=== PATIENT | female | born 1990 | race Caucasian/White ===

== ENCOUNTER 2017-05-26 20:12 | Emergency (ER) | payer BC, OTHER ==
[2017-05-26] MEDS ORDERED: LORAZEPAM 1 MG TABLET PO ONE (23:15)
[2017-05-26 23:37] LABS: ABSOLUTE BASOPHILS # (AUTO) 0.1 10^3/uL (0.0-0.2); ABSOLUTE EOSINOPHILS # (AUTO) 0.1 10^3/uL (0.0-0.6); ABSOLUTE LYMPHOCYTES (AUTO) 2.3 10^3/uL (0.5-4.7); ABSOLUTE MONOCYTES (AUTO) 0.4 10^3/uL (0.1-1.4); ABSOLUTE NEUT (AUTO) 5.5 10^3/uL (1.7-8.2); BASOPHILS % (AUTO) 0.6 % (0-2); HEMATOCRIT 36.1 % (36.0-47.0); HEMOGLOBIN 12.5 g/dL (12.0-15.5); LYMPHOCYTES % (AUTO) 27.6 % (13-45); MEAN CORPUSCULAR HEMOGLOBIN 32.1 pg (27.0-33.4); MEAN CORPUSCULAR HGB CONC 34.7 g/dL (32.0-36.0); MEAN CORPUSCULAR VOLUME 93 fl (80-97); MONOCYTES % (AUTO) 5.2 % (3-13); PLATELET COUNT 351 10^3/uL (150-450); RED CELL DISTRIBUTION WIDTH 13.6 % (11.5-14.0); SEGMENTED NEUTROPHILS % (AUTO) 65.6 % (42-78); TOTAL CELLS COUNTED % (AUTO) 100 %; WHITE BLOOD COUNT 8.4 10^3/uL (4.0-10.5)
[2017-05-26 23:51] LABS: ANION GAP 15 (5-19); BLOOD UREA NITROGEN 11 mg/dL (7-20); CALCIUM 10.6 mg/dL (8.4-10.2); CARBON DIOXIDE 23 mmol/L (22-30); CHLORIDE 102 mmol/L (98-107); GLUCOSE 97 mg/dL (75-110); POTASSIUM 4.3 mmol/L (3.6-5.0); SODIUM 140.4 mmol/L (137-145)
--- NOTE | 2017-05-27 01:27 | RADIOLOGY REPORT (SQ) ---
EXAM DESCRIPTION: CHEST SINGLE VIEW CLINICAL HISTORY: 27 years Female, chest pain, tachycardia COMPARISON: None. NUMBER OF VIEWS/TECHNIQUE: 1/AP LIMITATIONS: None. FINDINGS: Normal lung volume, clear parenchyma, normal cardiac silhouette, and intact bony thorax. IMPRESSION: No acute cardiopulmonary findings.
[2017-05-27] MEDS ORDERED: NORMAL SALINE 1000 ML 1,000 ML IV ONE (01:39)
[2017-05-27] MEDS ORDERED: METOPROLOL TARTRATE 25 MG TABLET PO ONE (01:40)
--- NOTE | 2017-05-27 01:44 | ER Document Report ---
ED General - General Chief Complaint: Chest Tightness Stated Complaint: CHEST PAIN Notes: Patient is a 27-year-old female without past medical history, no history of DVT or pulmonary embolus, no use of estrogen, who presents after developing chest heaviness around noon. She states that this started approximately 1 or 2 hours after taking Claritin with decongestant in it. She states she has taken this medication on multiple occasions in the past without similar side effect. She describes her symptoms as being a constant sense of heaviness and palpitations in her chest. Symptoms have been unchanged since onset. Nothing seems to improve or worsen the symptoms. She denies any history of similar symptoms in the past. She has not seen her primary care doctor regarding today's concerns. She denies any use of stimulants. No hemoptysis, abdominal pain, vomiting, discomfort in the arms, jaw or back. No family history of early cardiac disease. No history of connective tissue disorders. She denies any significant anxiety or stressors. TRAVEL OUTSIDE OF THE [place] IN LAST 30 DAYS: No - Related Data Allergies/Adverse Reactions: No Known Allergies Allergy (Verified 01/15/16 11:44) Past Medical History - General Information source: Patient - Social History Smoking Status: Never Smoker Chew tobacco use (# tins/day): No Frequency of alcohol use: None Drug Abuse: None Lives with: Family Family History: Reviewed & Not Pertinent Patient has suicidal ideation: No Patient has homicidal ideation: No - Past Medical History Cardiac Medical History: Denies: Hx Coronary Artery Disease, Hx Heart Attack, Hx Hypertension Pulmonary Medical History: Denies: Hx Asthma, Hx Bronchitis, Hx COPD, Hx Pneumonia Neurological Medical History: Denies: Hx Cerebrovascular Accident Renal/ Medical History: Denies: Hx Peritoneal Dialysis Musculoskeltal Medical History: Denies Hx Arthritis Past Surgical History: Denies: Hx Pacemaker - Immunizations Hx Diphtheria, Pertussis, Tetanus Vaccination: Yes Review of Systems - Review of Systems Notes: Constitutional: Negative for fever. HENT: Negative for sore throat. Eyes: Negative for visual changes. Cardiovascular: Positive for chest heaviness Respiratory: Positive for shortness of breath. Gastrointestinal: Negative for abdominal pain, vomiting or diarrhea. Genitourinary: Negative for dysuria. Musculoskeletal: Negative for back pain. Skin: Negative for rash. Neurological: Negative for headaches, weakness or numbness. 10 point ROS negative except as marked above and in HPI. Physical Exam - Vital signs Vitals: Temp Pulse Resp BP Pulse Ox 98.5 F 132 H 20 133/82 H 97 05/26/17 20:28 05/26/17 20:28 05/26/17 20:28 05/26/17 20:28 05/26/17 20:28 Interpretation: Tachycardic Notes: PHYSICAL EXAMINATION: GENERAL: Well-appearing, well-nourished and in no acute distress. HEAD: Atraumatic, normocephalic. EYES: Pupils equal round and reactive to light, extraocular movements intact, sclera anicteric, conjunctiva are normal. ENT: nares patent, oropharynx clear without exudates. Moderately dry mucous membranes. NECK: Normal range of motion, supple without lymphadenopathy LUNGS: Breath sounds clear to auscultation bilaterally and equal. No wheezes rales or rhonchi. HEART: Regular tachycardia without murmurs. Bedside echocardiogram without any evidence of a pericardial effusion. ABDOMEN: Soft, nontender, normoactive bowel sounds. No guarding, no rebound. No masses appreciated. EXTREMITIES: Normal range of motion, no pitting or edema. No cyanosis. NEUROLOGICAL: No focal neurological deficits. Moves all extremities spontaneously and on command. PSYCH: Normal mood, normal affect moderately anxious. SKIN: Warm, Dry, normal turgor, no rashes or lesions noted. Course - Re-evaluation Re-evalutation: 05/27/17 01:41 Patient presents with a sensation of palpitations, chest heaviness, and some fatigue for the past 4-5 hours. Patient states her symptoms started within 1-2 hours of taking a dose of Claritin with decongestant in it. Considerations would include an acute pulmonary embolus given her persistent tachycardia as well as sensation of chest heaviness. She has no additional risk factors for this diagnosis, does not take any form of supplemental estrogen, no history of the same, no use of chemotherapy. A d-dimer was sent as patient was unable to be excluded by PERC criteria due to her persistent tachycardia and is normal. Chest x-ray is clear without any evidence of a pneumothorax or an acute infiltrate. EKG does show sinus tachycardia but no evidence of pericarditis. No evidence of pericardial effusion on bedside echocardiogram. Will provide IV fluids as well as a small dose of beta blockade in the form of metoprolol as I do suspect that some of her symptoms may be secondary to the decongestant that she took prior to arrival. At this point of a very low clinical suspicion for any acute left any pathology including an acute pulmonary embolus, acute TX, pneumothorax, acute pneumonia, aortic dissection, or pericardial effusion. 05/27/17 03:14 Patient's heart rate has improved down to 104. Blood pressure remains within acceptable limits. I have emphasized with her that the exact etiology of her tachycardia is uncertain at this time, but I have asked that she follow-up closely with cardiology particularly if her symptoms do recur. At this time will discharge with return precautions and follow-up recommendations. Verbal discharge instructions given a the bedside and opportunity for questions given. Medication warnings reviewed. Patient is in agreement with this plan and has verbalized understanding of return precautions and the need for primary care follow-up in the next 24-72 hours. 0 - Vital Signs Vital signs: Temp Pulse Resp BP Pulse Ox 98.5 F 108 H 16 113/74 98 05/26/17 22:51 05/27/17 03:10 05/27/17 03:07 05/27/17 03:07 05/27/17 03:07 - Laboratory Result Diagrams: 05/26/17 23:25 05/26/17 23:25 Laboratory results interpreted by me: 05/26/17 23:25 Calcium 10.6 H - Diagnostic Test Radiology reviewed: Image reviewed, Reports reviewed Radiology results interpreted by me: 05/27/17 01:43 Chest x-ray: No acute infiltrate or pneumothorax - EKG Interpretation by Me Additional EKG results interpreted by me: 05/27/17 01:44 Sinus tachycardia. Rate 132. No ST elevations or depressions. QTC 397. Discharge - Discharge Clinical Impression: Tachycardia, Chest heaviness, Palpitations Condition: Good Disposition: HOME, SELF-CARE Additional Instructions: Please follow-up with cardiology regarding today's visit as your heart rate was fast. While this may be secondary to the medication you took today, following with cardiology to ensure that you have had normalization is the safest plan. Your labs and chest x-ray are normal today and do not suggest a serious cause of your symptoms at this time. Please return if you develop chest pain, shortness of breath, pass out, or have any other symptoms that are worrisome to you. Referrals: ACOSTA HOGAN MD [ACTIVE STAFF] - Follow up in 3-5 days
[2017-05-27 04:13] VITALS: BP 119/69
--- NOTE | 2017-05-27 07:33 | EKG REPORT ---
SEVERITY:- BORDERLINE ECG - SINUS TACHYCARDIA BORDERLINE T ABNORMALITIES, DIFFUSE LEADS : Confirmed by: Mihir Miranda MD 27-May-2017 07:32:04
== END 2017-05-27 04:17 | disposition home or self-care (01) ==
LOC: ER 20:12
DX: R00.0 Tachycardia, unspecified (principal); R07.9 Chest pain, unspecified; R00.2 Palpitations; R53.83 Other fatigue; Z79.899 Other long term (current) drug therapy
CPT/HCPCS: 93005; 99285; 96360; 36415; 84703; 85025; 80048; 85379; 71045; 93010; J7030

== ENCOUNTER 2017-05-27 15:57 | Emergency (ER) | payer BC ==
[2017-05-27] MEDS ORDERED: NORMAL SALINE 1000 ML 1,000 ML IV ONE (16:19)
[2017-05-27 17:17] LABS: ABSOLUTE EOSINOPHILS # (AUTO) 0.2 10^3/uL (0.0-0.6); ABSOLUTE LYMPHOCYTES (AUTO) 1.9 10^3/uL (0.5-4.7); ABSOLUTE MONOCYTES (AUTO) 0.5 10^3/uL (0.1-1.4); ABSOLUTE NEUT (AUTO) 2.7 10^3/uL (1.7-8.2); BASOPHILS % (AUTO) 0.8 % (0-2); EOSINOPHILS % (AUTO) 3.3 % (0-6); HEMATOCRIT 35.9 % (36.0-47.0); HEMOGLOBIN 12.2 g/dL (12.0-15.5); LYMPHOCYTES % (AUTO) 36.2 % (13-45); MEAN CORPUSCULAR HEMOGLOBIN 31.7 pg (27.0-33.4); MEAN CORPUSCULAR HGB CONC 34.1 g/dL (32.0-36.0); MEAN CORPUSCULAR VOLUME 93 fl (80-97); MONOCYTES % (AUTO) 8.9 % (3-13); PLATELET COUNT 336 10^3/uL (150-450); RED BLOOD COUNT 3.86 10^6/uL (3.72-5.28); RED CELL DISTRIBUTION WIDTH 13.6 % (11.5-14.0); SEGMENTED NEUTROPHILS % (AUTO) 50.8 % (42-78); TOTAL CELLS COUNTED % (AUTO) 100 %; WHITE BLOOD COUNT 5.3 10^3/uL (4.0-10.5)
[2017-05-27 17:22] LABS: APPEARANCE,URINE CLEAR; BILIRUBIN,URINE NEGATIVE (NEGATIVE); COLOR,URINE STRAW; GLUCOSE, URINE NEGATIVE (NEGATIVE); KETONES,URINE NEGATIVE (NEGATIVE); LEUKOCYTE ESTERASE,URINE NEGATIVE (NEGATIVE); NITRITE,URINE NEGATIVE (NEGATIVE); PROTEIN,URINE NEGATIVE (NEGATIVE); URINE SPECIFIC GRAVITY 1.002; UROBILINOGEN,URINE NEGATIVE mg/dL (<2.0)
[2017-05-27] MEDS ORDERED: METOPROLOL TARTRATE 25 MG TABLET PO ONE (17:27)
[2017-05-27 17:38] LABS: URINE AMPHETAMINES SCREEN NEGATIVE; URINE BARBITURATES SCREEN NEGATIVE; URINE BENZODIAZEPINES SCREEN NEGATIVE; URINE COCAINE SCREEN NEGATIVE; URINE MARIJUANA (THC) SCREEN NEGATIVE; URINE METHADONE SCREEN NEGATIVE; URINE PHENCYCLIDINE SCREEN NEGATIVE
[2017-05-27 17:43] LABS: ALANINE AMINOTRANSFERASE 43 U/L (9-52); ALBUMIN 4.6 g/dL (3.5-5.0); ALKALINE PHOSPHATASE 74 U/L (38-126); ANION GAP 12 (5-19); ASPARTATE AMINO TRANSFERASE 31 U/L (14-36); BILIRUBIN,DIRECT 0.3 mg/dL (0.0-0.4); BILIRUBIN,TOTAL 0.3 mg/dL (0.2-1.3); BLOOD UREA NITROGEN 9 mg/dL (7-20); CALCIUM 9.6 mg/dL (8.4-10.2); CARBON DIOXIDE 24 mmol/L (22-30); CHLORIDE 106 mmol/L (98-107); CREATINE KINASE 108 U/L (30-135); GLUCOSE 100 mg/dL (75-110); POTASSIUM 4.3 mmol/L (3.6-5.0); SODIUM 141.5 mmol/L (137-145); TOTAL PROTEIN 8.6 g/dL (6.3-8.2)
[2017-05-27 18:00] LABS: CREATINE KINASE MB < 0.22 ng/mL (<4.55); TROPONIN I < 0.012 ng/mL
[2017-05-27 18:01] LABS: FREE T4 (FREE THYROXINE) 0.91 ng/dL (0.78-2.19)
[2017-05-27 18:14] LABS: THYROID STIMULATING HORMONE 3.73 uIU/mL (0.47-4.68)
--- NOTE | 2017-05-27 20:02 | EKG REPORT ---
SEVERITY:- BORDERLINE ECG - SINUS TACHYCARDIA BORDERLINE T ABNORMALITIES, ANTERIOR LEADS : Confirmed by: Mihir Miranda MD 27-May-2017 20:01:47
[2017-05-27] MEDS ORDERED: ONDANSETRON HCL INJ/PF 4 MG/2 ML SDV IV ONE (20:13)
--- NOTE | 2017-05-27 20:14 | RADIOLOGY REPORT (SQ) ---
EXAM DESCRIPTION: CTA CHEST COMPLETED DATE/TIME: 05/27/2017 7:55 pm REASON FOR STUDY: r/o pe tachy cp COMPARISON: Chest x-ray 05/27/2017 TECHNIQUE: CT scan of the chest performed using helical scanning technique with dynamic intravenous contrast injection. Images reviewed with lung, soft tissue and bone windows. Reconstructed coronal and sagittal MPR images reviewed. Additional 3 dimensional post-processing performed to develop Maximal Intensity Projection images (MS P). All images stored on PACS. All CT scanners at this facility use dose modulation, iterative reconstruction, and/or weight based d osing when appropriate to reduce radiation dose to as low as reasonably achievable (ALARA). [facility]: Dose Right [facility]: CareDose [facility]: Dose Right [facility]: Teradose 4D [facility]: [employer] CONTRAST TYPE AND DOSE: contrast/concentration: Isovue 370.00 mg/ml; Total Contrast Delivered: 100.0 ml; Total Saline Delivered: 70.0 ml Contrast bolus optimized for the pulmonary arteries. Not diagnostic for the aorta. RENAL FUNCTION: BUN 9 creatinine 0.8 RADIATION DOSE: CT Rad equipment meets quality standard of care and radiation dose reduction techniq ues were employed. CTDIvol: 6.6 - 27.5 mGy. DLP: 921 mGy-cm. . LIMITATIONS: None. FINDINGS: LUNGS AND PLEURA: No masses, infiltrates, pneumothorax. No pleural effusions, calcificati ons. AORTA AND GREAT VESSELS: No aneurysm. No dissection. HEART: No pericardial effusion. No significant coronary artery calcifications. PULMONARY ARTERIES: No emboli visualized in the main pulmonary arteries or the segmental branches. HILAR AND MEDIASTINAL STRUCTURES: No identified masses or abnormal nodes. HARDWARE: None in the chest. UPPER ABDOMEN: No significant findings. Limited exam. THYROID AND OTHER SOFT TISSUES: No masses. No adenopathy. BONES: No acute or significant finding. 3D MIPS: Confirm above findings. OTHER: No other significant finding. IMPRESSION: NORMAL CTA OF THE CHEST. NO PULMONARY EMBOLI. COMMENT: Quality ID # [id number]: Final reports with documentation of one or more dose reduction techniques (e.g., Automated exposure control, adjustment of the mA and/or kV according to patient size, use of iterative reconstruction technique) TECHNICAL DOCUMENTATION: JOB ID: [id number] [employer]- All Rights Reserved Reading location - IP/workstation name: [email or web address]
[2017-05-27 20:29] VITALS: BP 118/74
--- NOTE | 2017-05-27 21:03 | ER Document Report ---
ED General - General Chief Complaint: Chest Tightness Stated Complaint: CHEST TIGHTNESS, HEART RATE ISSUE Time Seen by Provider: 05/27/17 16:18 TRAVEL OUTSIDE OF THE [place] IN LAST 30 DAYS: No - HPI Patient complains to provider of: Chest tightness palpitations Notes: Patient coming in for chest tightness and palpitations. Patient was seen night prior for similar symptoms started after patient was taken a antihistamine with decongestant. Patient had workup performed EKG showing a tachycardia and basic lab work showing no clear pathology. Patient was discharged however upon reevaluation by the provider today patient still having symptoms therefore was referred to become back to the ER for further evaluation. Patient states that she has not taken any further medication with decongestants no other further stimulants uses. Patient states still having tachycardia and slight chest heaviness. Patient states she did improve when she was given medication night prior. Review of the chart showed patient received lorazepam and beta-shashi. Patient denies any fevers chills nausea vomiting diarrhea. Denies any trauma. Denies any recent travel denies any hormone use. Patient is tachycardic upon my evaluation however resting comfortably no signs of hypoxia - Related Data Allergies/Adverse Reactions: No Known Allergies Allergy (Verified 05/27/17 16:00) Past Medical History - Social History Smoking Status: Never Smoker Chew tobacco use (# tins/day): No Frequency of alcohol use: None Family History: Reviewed & Not Pertinent Patient has suicidal ideation: No Patient has homicidal ideation: No - Past Medical History Cardiac Medical History: Denies: Hx Coronary Artery Disease, Hx Heart Attack, Hx Hypertension Pulmonary Medical History: Denies: Hx Asthma, Hx Bronchitis, Hx COPD, Hx Pneumonia Neurological Medical History: Denies: Hx Cerebrovascular Accident Renal/ Medical History: Denies: Hx Peritoneal Dialysis Musculoskeltal Medical History: Denies Hx Arthritis Past Surgical History: Reports: Hx Cholecystectomy, Hx Tubal Ligation. Denies: Hx Pacemaker - Immunizations Hx Diphtheria, Pertussis, Tetanus Vaccination: Yes Review of Systems - Review of Systems Constitutional: No symptoms reported EENT: No symptoms reported Cardiovascular: Palpitations Respiratory: No symptoms reported Gastrointestinal: No symptoms reported Genitourinary: No symptoms reported Female Genitourinary: No symptoms reported Musculoskeletal: No symptoms reported Skin: No symptoms reported Hematologic/Lymphatic: No symptoms reported Neurological/Psychological: No symptoms reported -: Yes All other systems reviewed and negative Physical Exam - Vital signs Vitals: Pulse Ox 100 05/27/17 16:18 Interpretation: Normal - General General appearance: Appears well, Alert - HEENT Head: Normocephalic, Atraumatic Eyes: Normal Pupils: PERRL - Respiratory Respiratory status: No respiratory distress Chest status: Nontender Breath sounds: Normal Chest palpation: Normal - Cardiovascular Rhythm: Regular, Tachycardia Heart sounds: Normal auscultation Murmur: No - Abdominal Inspection: Normal Distension: No distension Bowel sounds: Normal Tenderness: Nontender Organomegaly: No organomegaly - Back Back: Normal, Nontender - Extremities General upper extremity: Normal inspection, Nontender, Normal color, Normal ROM , Normal temperature General lower extremity: Normal inspection, Nontender, Normal color, Normal ROM , Normal temperature, Normal weight bearing. No: Patrice's sign - Neurological Neuro grossly intact: Yes Cognition: Normal Orientation: AAOx4 Hannah Coma Scale Eye Opening: Spontaneous Hannah Coma Scale Verbal: Oriented Uriah Coma Scale Motor: Obeys Commands Uriah Coma Scale Total: 15 Speech: Normal Motor strength normal: LUE, RUE, LLE, RLE Sensory: Normal - Psychological Associated symptoms: Normal affect, Normal mood - Skin Skin Temperature: Warm Skin Moisture: Dry Skin Color: Normal Course - Re-evaluation Re-evalutation: 05/27/17 21:57 The patient has atypical chest pain as the patient's chest pain is not suggestive of pulmonary embolus, cardiac ischemia, aortic dissection, or other serious etiology. Given the extremely low risk of these diagnoses further testing and evaluation for these possibilities does not appear to be indicated at this time. The patient has been instructed to return if the symptoms worsen or change in any way. Thyroid studies tox screen electrolytes were all performed showing no critical pathology. Patient did have a negative d-dimer day prior to arrival my thought was a low risk however this is patient's second visit to feel like further investigation with a CTA was warranted CTA did return negative. Patient improved after small dose of beta-shashi. tachycardia for unknown reason however does respond to a beta-shashi. Will discharge patient home with a small dose of metoprolol daily and highly encouraged patient to continue to follow-up with the cigar head puncher recommended at her last visit. - Vital Signs Vital signs: Temp Pulse Resp BP Pulse Ox 98.1 F 128 H 19 118/74 100 05/27/17 21:17 05/27/17 16:19 05/27/17 21:00 05/27/17 20:12 05/27/17 21:00 - Laboratory Result Diagrams: 05/27/17 17:06 05/27/17 17:06 Laboratory results interpreted by me: 05/27/17 05/27/17 17:06 17:06 Hct 35.9 L Total Protein 8.6 H Discharge - Discharge Clinical Impression: Tachycardia, Chest heaviness Condition: Good Disposition: HOME, SELF-CARE Instructions: Chest Pain of Unclear Cause ([facility]), Family Physicians / Practices , Sinus Tachycardia ([facility]) Additional Instructions: At this time the laboratory studies and CAT scan did not show any significant pathology and did not give me a reason for your tachycardia. I recommended we start you on a very low-dose beta-shashi as well as seems to help out with her symptoms and highly recommend she does continue to follow-up with a cigar head puncher as previously recommended. Prescriptions: Metoprolol Tartrate 12.5 mg PO BID #14 tablet Forms: Return to Work Referrals: AARON VEE [Primary Care Provider] - Follow up in 3-5 days ACOSTA HOGAN MD [ACTIVE STAFF] - Follow up as needed
== END 2017-05-27 21:25 | disposition home or self-care (01) ==
LOC: ER 15:57
DX: R00.0 Tachycardia, unspecified (principal); R07.9 Chest pain, unspecified; R00.2 Palpitations; Z90.49 Acquired absence of other specified parts of digestive tract; Z98.51 Tubal ligation status
CPT/HCPCS: 93005; 99285; 96374; 36415; 84439; 82553; 82550; 84443; 85025; 81025; 80053; 81001; 84484; 80307; 83880; 71275; 93010; J2405; J7030

== ENCOUNTER 2017-08-12 12:42 | Emergency (ER) | payer BC ==
[2017-08-12] MEDS ORDERED: ONDANSETRON HCL INJ/PF 4 MG/2 ML SDV IV ONE (13:19)
[2017-08-12] MEDS ORDERED: KETOROLAC TROMETHAMINE INJ/PF 30 MG/1 ML SDV IV ONE (13:19)
--- NOTE | 2017-08-12 13:23 | ER Document Report ---
ED Medical Screen (RME) - General Chief Complaint: Flank Pain Stated Complaint: BACK PAIN Time Seen by Provider: 08/12/17 13:16 Notes: 27 years old female presents today with right flank pain since this morning radiating towards her groin. Associated with slight nausea no vomiting. Pain comes and goes. When he reaches the top of the pain scale is about 10 then subsided to around 6-8. No dysuria frequency urgency no hematuria. Denies any fever chills or other constitutional symptoms. I have greeted and performed a rapid initial assessment of this patient. A comprehensive ED assessment and evaluation of the patient, analysis of test results and completion of the medical decision making process will be conducted by additional ED providers. PHYSICAL EXAMINATION: GENERAL: Well-appearing, well-nourished and in moderate acute distress. HEAD: Atraumatic, normocephalic. EYES: Pupils equal round extraocular movements intact, conjunctiva are normal. ENT: Nares patent NECK: Normal range of motion LUNGS: No respiratory distress Musculoskeletal: Normal range of motion NEUROLOGICAL: Normal speech, normal gait. PSYCH: Normal mood, normal affect. SKIN: Warm, Dry, normal turgor, no rashes or lesions noted. TRAVEL OUTSIDE OF THE [place] IN LAST 30 DAYS: No - Related Data Allergies/Adverse Reactions: No Known Allergies Allergy (Verified 05/27/17 16:00) Past Medical History - Social History Chew tobacco use (# tins/day): No Frequency of alcohol use: None Drug Abuse: None - Past Medical History Cardiac Medical History: Denies: Hx Coronary Artery Disease, Hx Heart Attack, Hx Hypertension Pulmonary Medical History: Denies: Hx Asthma, Hx Bronchitis, Hx COPD, Hx Pneumonia Neurological Medical History: Denies: Hx Cerebrovascular Accident Renal/ Medical History: Denies: Hx Peritoneal Dialysis Musculoskeltal Medical History: Denies Hx Arthritis Past Surgical History: Reports: Hx Cholecystectomy, Hx Tubal Ligation. Denies: Hx Pacemaker - Immunizations Hx Diphtheria, Pertussis, Tetanus Vaccination: Yes Physical Exam - Vital signs Vitals: Temp Pulse Resp BP Pulse Ox 97.9 F 102 H 20 130/74 H 98 08/12/17 12:46 08/12/17 12:46 08/12/17 12:46 08/12/17 12:46 08/12/17 12:46 Course - Vital Signs Vital signs: Temp Pulse Resp BP Pulse Ox 97.9 F 102 H 20 130/74 H 98 08/12/17 12:46 08/12/17 12:46 08/12/17 12:46 08/12/17 12:46 08/12/17 12:46
--- NOTE | 2017-08-12 14:04 | ER Document Report ---
ED General - General Mode of Arrival: Ambulatory Information source: Patient TRAVEL OUTSIDE OF THE [place] IN LAST 30 DAYS: No <SHIMA NORTON - Last Filed: 08/12/17 14:12> <ROSSI CASTANO - Last Filed: 08/12/17 16:26> - General Chief Complaint: Flank Pain Stated Complaint: BACK PAIN Time Seen by Provider: 08/12/17 13:16 Notes: 27 y.o female presents to the ED with RT flank pain of onset this morning around 0800. Pt reports that the pain this morning woke her up from sleep. Pt denies any radiation to her groin or abdomen. She states that her pain is intermittent but denies any rest, activity or position that alleviates the pain. Pt denies any injury to her RT flank or N/V/D. She denies any fever, dysuria, frequency or hematuria. Pt has a PSHx of tubal ligation in 2014 and cholecystectomy. Pt's last menstrual period was two weeks ago and is still happening which she states is normal for her. (SHIMA NORTON) - Related Data Allergies/Adverse Reactions: No Known Allergies Allergy (Verified 05/27/17 16:00) Past Medical History - General Information source: Patient - Social History Smoking Status: Never Smoker Chew tobacco use (# tins/day): No Frequency of alcohol use: None Drug Abuse: None Family History: Reviewed & Not Pertinent Patient has suicidal ideation: No Patient has homicidal ideation: No Neurological Medical History: Renal/ Medical History: Denies: Hx Peritoneal Dialysis Past Surgical History: Reports: Hx Cholecystectomy, Hx Tubal Ligation - Immunizations Hx Diphtheria, Pertussis, Tetanus Vaccination: Yes <SHIMA NORTON - Last Filed: 08/12/17 14:12> Review of Systems - Review of Systems Constitutional: No symptoms reported EENT: No symptoms reported Cardiovascular: No symptoms reported Respiratory: No symptoms reported Gastrointestinal: See HPI. denies: Abdominal pain, Diarrhea, Nausea, Vomiting Genitourinary: See HPI, Flank pain. denies: Dysuria, Frequency, Hematuria Female Genitourinary: No symptoms reported Musculoskeletal: No symptoms reported Skin: No symptoms reported Hematologic/Lymphatic: No symptoms reported Neurological/Psychological: No symptoms reported -: Yes All other systems reviewed and negative <SHIMA NORTON - Last Filed: 08/12/17 14:12> Physical Exam <SHIMA NORTON - Last Filed: 08/12/17 14:12> <ROSSI CASTANO - Last Filed: 08/12/17 16:26> - Vital signs Vitals: Temp Pulse Resp BP Pulse Ox 97.9 F 102 H 20 130/74 H 98 08/12/17 12:46 08/12/17 12:46 08/12/17 12:46 08/12/17 12:46 08/12/17 12:46 - Notes Notes: Physical Exam: General: Alert, appears well. HEENT: Normocephalic. Atraumatic. PERRL. Extraocular movements intact. Oropharynx clear. Neck: Supple. Non-tender. Respiratory: No respiratory distress. Clear and equal breath sounds bilaterally. Cardiovascular: Regular rate and rhythm. Back: Tender to palpate RT perivertebral muscles and extends laterally over the ribs. Not tender to palpate over the LT side. Abdominal: Obese. Soft, non-tender. No distension. Normal Bowel Sounds. Extremities: Moves all four extremities. Upper extremities: Normal inspection. Normal ROM. Lower extremities: Normal inspection. No edema. Normal ROM. Neurological: Normal cognition. AAOx3. Normal speech. (SHMIA NORTON) Course <SHIMA NORTON - Last Filed: 08/12/17 14:12> - Laboratory Result Diagrams: 08/12/17 14:15 08/12/17 14:15 - Diagnostic Test Radiology reviewed: Image reviewed, Reports reviewed - Noncontrasted CT scan for renal stones shows hepatomegaly with diffuse fatty infiltration of the liver. No kidney stones, no explanation for her pain. <ROSSI CASTANO - Last Filed: 08/12/17 16:26> - Re-evaluation Re-evalutation: 08/12/17 16:19 CT scan does not show explanation for patient's pain. The urinalysis does not show hematuria. Physical exam is most consistent with musculoskeletal right flank and lumbar back pain. (ROSSI CASTANO) - Vital Signs Vital signs: Temp Pulse Resp BP Pulse Ox 97.9 F 102 H 20 130/74 H 98 08/12/17 12:46 08/12/17 12:46 08/12/17 12:46 08/12/17 12:46 08/12/17 12:46 - Laboratory Laboratory results interpreted by me: 08/12/17 13:56 Urine Blood SMALL H Discharge <SHIMA NORTON - Last Filed: 08/12/17 14:12> <EYADROSSI Bush - Last Filed: 08/12/17 16:26> - Discharge Clinical Impression: Flank pain Condition: Stable Disposition: HOME, SELF-CARE Additional Instructions: Flank Pain: We weren't able to prove an exact cause for your flank pain. Pain in the flank can be caused by a muscle strain or spasm. Sometimes a kidney stone causes pain, but can't be found on our tests. Infection in the kidney should be evident on a urine test. Early shingles can occasionally cause flank pain, without the rash that proves the diagnosis. On rare occasions, disease of the pancreas, aorta, spleen, or colon can create pain in the flank. At this time, there's no evidence of a dangerous condition, and it seems safe for you to be at home. If the pain goes away and does not come back, no further testing will be needed. If pain persists, or becomes more severe, we may need to repeat some tests or order additional new testing. If your pain is early shingles, you should develop an eruption of blisters in the painful area within a few days. Call the doctor or return if you have pain that is spreading or becoming more severe, pain that does not resolve with time, fever, or any other new symptoms. Your exam and testing suggests that the pain is coming from the muscles in your right flank, lateral chest wall, and lumbar back region. This is usually due to a strain that occurs several days before the pain suddenly starts. The CT scan did show an enlarged liver with diffuse fatty infiltration of the liver. You should follow-up with your primary care provider for referral to a dump truck operator to further evaluate this problem. Take Tylenol and ibuprofen or Aleve for the back and side muscle pain. You will be discharged with some pain medication to take this evening and tomorrow. Rest as much as possible and avoid turning, twisting, and heavy lifting. Follow-up with your primary care provider this week if not improving. RETURN TO THE EMERGENCY ROOM IF ANY NEW OR WORSENING SYMPTOMS. Scribe Attestation: 08/12/17 14:41 I personally performed the services described in the documentation, reviewed and edited the documentation which was dictated to the scribe in my presence, and it accurately records my words and actions. (ROSSI CASTANO) Scribe Documentation - Scribe Written by Ye:: Ye Ardon [id number] 08/12/17 acting as scribe for :: Eyad <SHIMA NORTON - Last Filed: 08/12/17 14:12>
[2017-08-12 14:39] LABS: ABSOLUTE EOSINOPHILS # (AUTO) 0.1 10^3/uL (0.0-0.6); ABSOLUTE LYMPHOCYTES (AUTO) 1.9 10^3/uL (0.5-4.7); ABSOLUTE MONOCYTES (AUTO) 0.5 10^3/uL (0.1-1.4); ABSOLUTE NEUT (AUTO) 3.2 10^3/uL (1.7-8.2); BASOPHILS % (AUTO) 0.9 % (0-2); EOSINOPHILS % (AUTO) 1.2 % (0-6); HEMATOCRIT 36.7 % (36.0-47.0); HEMOGLOBIN 12.5 g/dL (12.0-15.5); LYMPHOCYTES % (AUTO) 33.6 % (13-45); MEAN CORPUSCULAR HEMOGLOBIN 32.2 pg (27.0-33.4); MEAN CORPUSCULAR VOLUME 95 fl (80-97); MONOCYTES % (AUTO) 8.1 % (3-13); PLATELET COUNT 304 10^3/uL (150-450); RED BLOOD COUNT 3.87 10^6/uL (3.72-5.28); RED CELL DISTRIBUTION WIDTH 13.3 % (11.5-14.0); SEGMENTED NEUTROPHILS % (AUTO) 56.2 % (42-78); TOTAL CELLS COUNTED % (AUTO) 100 %; WHITE BLOOD COUNT 5.7 10^3/uL (4.0-10.5)
[2017-08-12 15:00] LABS: ALANINE AMINOTRANSFERASE 36 U/L (9-52); ALBUMIN 4.4 g/dL (3.5-5.0); ALKALINE PHOSPHATASE 67 U/L (38-126); ANION GAP 13 (5-19); ASPARTATE AMINO TRANSFERASE 30 U/L (14-36); BILIRUBIN,DIRECT 0.3 mg/dL (0.0-0.4); BILIRUBIN,TOTAL 0.3 mg/dL (0.2-1.3); BLOOD UREA NITROGEN 8 mg/dL (7-20); CALCIUM 10.1 mg/dL (8.4-10.2); CARBON DIOXIDE 24 mmol/L (22-30); CHLORIDE 106 mmol/L (98-107); GLUCOSE 107 mg/dL (75-110); LIPASE 155.8 U/L (23-300); POTASSIUM 4.4 mmol/L (3.6-5.0); TOTAL PROTEIN 7.8 g/dL (6.3-8.2)
--- NOTE | 2017-08-12 16:00 | RADIOLOGY REPORT (SQ) ---
EXAM DESCRIPTION: CT ABD/PELVIS NO ORAL OR IV COMPLETED DATE/TIME: 08/12/2017 3:40 pm REASON FOR STUDY: Rule out kidney stone COMPARISON: 07/05/2011. TECHNIQUE: CT scan of the abdomen and pelvis performed without intravenous or oral contrast. Images reviewed with lung, soft tissue, and bone windows. Reconstructed coronal and sagittal MPR images revi ewed. All images stored on PACS. All CT scanners at this facility use dose modulation, iterative reconstruction, and/or weight based d osing when appropriate to reduce radiation dose to as low as reasonably achievable (ALARA). [facility]: Dose Right [facility]: CareDose [facility]: Dose Right [facility]: Teradose 4D [facility]: [employer] RADIATION DOSE: CT Rad equipment meets quality standard of care and radiation dose reduction techniq ues were employed. CTDIvol: 18.8 mGy. DLP: 1037 mGy-cm.mGy. LIMITATIONS: None. FINDINGS: LOWER CHEST: No significant findings. No nodules or infiltrates. NON-CONTRASTED LIVER, SPLEEN, ADRENALS: Evaluation limited by lack of IV contrast. Liver enlarged, m easuring 23 cm. Diffuse fatty infiltration of the liver, somewhat heterogenous. No identified signi ficant masses. PANCREAS: No masses. No peripancreatic inflammatory changes. GALLBLADDER: No identified stones by CT criteria. No inflammatory changes to suggest cholecystitis. RIGHT KIDNEY AND URETER: No suspicious masses. Assessment limited by lack of IV contrast. No signif icant calcifications. No hydronephrosis or hydroureter. LEFT KIDNEY AND URETER: No suspicious masses. Assessment limited by lack of IV contrast. No signifi cant calcifications. No hydronephrosis or hydroureter. AORTA AND RETROPERITONEUM: No aneurysm. No retroperitoneal masses or adenopathy. BOWEL AND PERITONEAL CAVITY: No obvious masses or inflammatory changes. No free fluid. APPENDIX: Normal. PELVIS, BLADDER, AND ABDOMINAL WALL:No abnormal masses. No free fluid. Bladder normal. BONES: No significant findings. OTHER: No other significant finding. IMPRESSION: HEPATOMEGALY WITH DIFFUSE FATTY INFILTRATION OF THE LIVER. NO OTHER SIGNIFICANT OR ACUT E PROCESS IN THE ABDOMEN OR PELVIS. COMMENT: Quality ID # [id number]: Final reports with documentation of one or more dose reduction techniques (e.g., Automated exposure control, adjustment of the mA and/or kV according to patient size, use of iterative reconstruction technique) TECHNICAL DOCUMENTATION: JOB ID: [id number] [employer]- All Rights Reserved Reading location - IP/workstation name: [email or web address]
[2017-08-12 16:06] LABS: APPEARANCE,URINE CLEAR; BILIRUBIN,URINE NEGATIVE (NEGATIVE); COLOR,URINE STRAW; GLUCOSE, URINE NEGATIVE (NEGATIVE); KETONES,URINE NEGATIVE (NEGATIVE); LEUKOCYTE ESTERASE,URINE NEGATIVE (NEGATIVE); NITRITE,URINE NEGATIVE (NEGATIVE); PROTEIN,URINE NEGATIVE (NEGATIVE); URINE SPECIFIC GRAVITY 1.008; UROBILINOGEN,URINE NEGATIVE mg/dL (<2.0)
[2017-08-12] MEDS ORDERED: HYDROCODONE/ACETAMINOPHEN 5-325 MG (6 TAB/ER DISP) PO PRN (16:26)
[2017-08-12 16:59] VITALS: BP 124/82
== END 2017-08-12 17:07 | disposition home or self-care (01) ==
LOC: ER 12:42
DX: R10.9 Unspecified abdominal pain (principal); R16.0 Hepatomegaly, not elsewhere classified; K76.0 Fatty (change of) liver, not elsewhere classified; M54.5 Low back pain; Z90.49 Acquired absence of other specified parts of digestive tract; Z98.51 Tubal ligation status
CPT/HCPCS: 99284; 96374; 96375; 36415; 83690; 85025; 81025; 80053; 81001; 74176; J1885; J2405

== ENCOUNTER 2017-09-01 08:16 | Emergency (ER) | payer BC ==
--- NOTE | 2017-09-01 09:05 | ER Document Report ---
ED General - General Mode of Arrival: Ambulatory Information source: Patient TRAVEL OUTSIDE OF THE [place] IN LAST 30 DAYS: No <ASHLI FISHMAN - Last Filed: 09/01/17 12:06> <ROSSI CASTANO - Last Filed: 09/01/17 13:16> - General Chief Complaint: Pelvic Pain Stated Complaint: LEFT SIDE PAIN Time Seen by Provider: 09/01/17 08:44 Notes: Patient is a 27 year old female with a history of ovarian cysts presents to the emergency department complaining of left lower abdominal pain onset this morning. Patient states her abdominal pain woke her out of her sleep this morning. She further states her current pain feels similar to her previous ovarian cysts. Patient mentions having menstural cramps onset last week and states her current pain does not feel like menstrual cramps. Patient is currently on her period further stating she has irregular periods. She states she had her period for 2 months, stopped for 1 week and is currently back on. She states she does not have an OBGYN and has not seen anyone regarding her irregularity. Patient is currently taking Metoprolol. (ASHLI FISHMAN) The patient was seen here on 08/12/2017 complaining of right flank pain. At that time she had a CT limited study which did not show any renal stones or ureteral stones. Her diagnosis was most likely musculoskeletal pain due to the lack of any findings other than the physical exam showing the tenderness in the muscles. The CT scan did note hepatomegaly with diffuse fatty infiltration of the liver. (ROSSI CASTANO) - Related Data Allergies/Adverse Reactions: No Known Allergies Allergy (Verified 05/27/17 16:00) Past Medical History - General Information source: Patient - Social History Smoking Status: Never Smoker Chew tobacco use (# tins/day): No Frequency of alcohol use: None Drug Abuse: None Family History: Reviewed & Not Pertinent Patient has suicidal ideation: No Patient has homicidal ideation: No Neurological Medical History: Past Surgical History: Reports: Hx Cholecystectomy, Hx Tubal Ligation - Immunizations Hx Diphtheria, Pertussis, Tetanus Vaccination: Yes <ASHLI FISHMAN - Last Filed: 09/01/17 12:06> Review of Systems - Review of Systems Constitutional: No symptoms reported EENT: No symptoms reported Cardiovascular: No symptoms reported Respiratory: No symptoms reported Gastrointestinal: See HPI, Abdominal pain Genitourinary: No symptoms reported Female Genitourinary: No symptoms reported Musculoskeletal: No symptoms reported Skin: No symptoms reported Hematologic/Lymphatic: No symptoms reported Neurological/Psychological: No symptoms reported -: Yes All other systems reviewed and negative <ASHLI FISHMAN - Last Filed: 09/01/17 12:06> Physical Exam - General General appearance: Appears well, Alert In distress: None - HEENT Head: Normocephalic, Atraumatic Eyes: Normal Conjunctiva: Normal Extraocular movements intact: Yes Pupils: PERRL Mucous membranes: Normal Neck: Normal - Respiratory Respiratory status: No respiratory distress Chest status: Nontender Breath sounds: Normal Chest palpation: Normal - Cardiovascular Rhythm: Regular Heart sounds: Normal auscultation Murmur: No Friction rub: No Gallop: None auscultated - Abdominal Inspection: Obese Distension: No distension Bowel sounds: Normal Tenderness: Tender - Left pelvic region tender to palpation. Palpation in the RLQ does not cause pain in the LLQ or pelvic region., Guarding - Minimal, Left pelvic region - Extremities General upper extremity: Normal ROM General lower extremity: Normal ROM - Neurological Neuro grossly intact: Yes Cognition: Normal Orientation: AAOx4 Hannah Coma Scale Eye Opening: Spontaneous [place] Coma Scale Verbal: Oriented [place] Coma Scale Motor: Obeys Commands [place] Coma Scale Total: 15 Speech: Normal - Psychological Associated symptoms: Normal affect, Normal mood - Skin Skin Temperature: Warm Skin Moisture: Dry Skin Color: Normal <ASHLI FISHMAN - Last Filed: 09/01/17 12:06> - Vital signs Vitals: Temp Pulse Resp BP Pulse Ox 97.7 F 99 18 141/89 H 100 09/01/17 08:19 09/01/17 08:19 09/01/17 08:19 09/01/17 08:19 09/01/17 08:19 Course - Laboratory Result Diagrams: 09/01/17 09:25 09/01/17 09:25 <ASHLI FISHMAN - Last Filed: 09/01/17 12:06> - Laboratory Result Diagrams: 09/01/17 09:25 09/01/17 09:25 - Diagnostic Test Radiology reviewed: Reports reviewed - Transvaginal ultrasound is normal. CT scan abdomen pelvis does not show acute abnormality. <ROSSI CASTANO - Last Filed: 09/01/17 13:16> - Re-evaluation Re-evalutation: 09/01/17 12:25 The patient was quite insistent about something new being wrong in her abdomen. CT scan was ordered, and before I discovered that she had had one 3 weeks ago , she was already in the scanner being imaged so I could not stop the scan from being done. (ROSSI CASTANO) - Vital Signs Vital signs: Temp Pulse Resp BP Pulse Ox 97.7 F 99 18 141/89 H 100 09/01/17 08:19 09/01/17 08:19 09/01/17 08:37 09/01/17 08:19 09/01/17 08:19 - Laboratory Laboratory results interpreted by me: 09/01/17 09/01/17 09/01/17 09:25 09:25 10:30 Hct 35.5 L Sodium 145.7 H Chloride 108 H Urine Blood LARGE H Ur Leukocyte Esterase SMALL H Discharge <ASHLI FISHMAN - Last Filed: 09/01/17 12:06> <ROSSI CASTANO - Last Filed: 09/01/17 13:16> - Discharge Clinical Impression: Menstrual cramps, Pelvic pain Urinary tract infection Qualifiers: Urinary tract infection type: site unspecified Hematuria presence: with hematuria Qualified Code(s): N39.0 - Urinary tract infection, site not specified Condition: Stable Disposition: HOME, SELF-CARE Additional Instructions: Urinary Tract Infection: Your evaluation indicates that you have a urinary tract infection. This is due to germs growing in the bladder. This is a common problem. This infection usually responds quickly to antibiotics. Your antibiotic should be taken exactly as prescribed. Drink plenty of fluids -- three to four quarts a day. Occasionally, a bladder anesthetic will be prescribed to help stop the feeling of urgency until the antibiotic has a chance to clear the infection. This may cause your urine to be dark orange. Certain urine infections require a culture. If the doctor obtained a culture, the results will be back in two days. You should call to see if a change in treatment is needed. A repeat urinalysis after you finish treatment is often recommended. The physician will let you know if further testing is required. Call the doctor if you develop fever, chills, flank pain, inability to urinate, or blood in the urine. Pelvic Pain: There are many causes of pain in the pelvic area. The cause could be the tubes, ovaries, uterus, intestines, appendix, pelvic muscles and connective tissue, or the urinary tract. The cause of your pelvic pain is not clear. However, it seems safe to treat you outside the hospital. If the pain sounds like a temporary problem, we sometimes wait to see if it goes away. Other patients may need additional tests, such as pelvic ultrasound or cultures. Conditions may change. Call us or come back for reexamination if any problems occur, such as: (1) Pain that becomes more severe, steady, or becomes concentrated in one specific area. Also, pain that is more severe with movement or coughing. (2) Vomiting that persists or becomes more frequent. (3) Blood in the vomitus, urine, or bowel movements. Blood in the stool may have a tarry or black appearance. (4) Shaking chills or fever greater than 100 degrees. (5) The abdomen becomes more distended or swollen. (6) Bowel movements cease. (7) Heavy vaginal bleeding. The pelvic ultrasound did not show any abnormalities of your uterus or ovaries. The urinalysis suggests that you have a urinary tract infection. The blood work does not suggest a significant infectious process occurring at this time. The increased pain in your pelvis today may be due to the menstrual cramps being worse than usual, and may be due to the addition of a urinary tract infection. You should take medications as prescribed, drink plenty of fluids, get plenty of rest. Continue taking a nonsteroidal anti-inflammatory medication such as ibuprofen or Aleve. Follow-up with your primary care provider tomorrow or [facility] if not improving. Prescriptions: Cephalexin Monohydrate [Keflex 500 mg Capsule] 500 mg PO TID #15 capsule Oxycodone HCl/Acetaminophen [Percocet 5-325 mg Tablet] 1 - 2 tab PO ASDIR PRN # 15 tablet PRN Reason: Scribe Attestation: 09/01/17 10:30 I personally performed the services described in the documentation, reviewed and edited the documentation which was dictated to the scribe in my presence, and it accurately records my words and actions. (ROSSI CASTANO) Scribe Documentation - Scribe Written by Scribe:: Ye Rodrigues, 09/01/2017 11:51 acting as scribe for :: Omayra <ASHLI FISHMAN - Last Filed: 09/01/17 12:06>
[2017-09-01] MEDS ORDERED: OXYCODONE-ACETAMINOPHEN 5-325 MG TABLET PO ONE ×2 (09:06→13:10)
[2017-09-01 09:45] LABS: ABSOLUTE EOSINOPHILS # (AUTO) 0.1 10^3/uL (0.0-0.6); ABSOLUTE LYMPHOCYTES (AUTO) 1.7 10^3/uL (0.5-4.7); ABSOLUTE MONOCYTES (AUTO) 0.5 10^3/uL (0.1-1.4); ABSOLUTE NEUT (AUTO) 7.2 10^3/uL (1.7-8.2); BASOPHILS % (AUTO) 0.5 % (0-2); EOSINOPHILS % (AUTO) 0.6 % (0-6); HEMATOCRIT 35.5 % (36.0-47.0); HEMOGLOBIN 12.5 g/dL (12.0-15.5); LYMPHOCYTES % (AUTO) 18.2 % (13-45); MEAN CORPUSCULAR HEMOGLOBIN 32.7 pg (27.0-33.4); MEAN CORPUSCULAR HGB CONC 35.2 g/dL (32.0-36.0); MEAN CORPUSCULAR VOLUME 93 fl (80-97); MONOCYTES % (AUTO) 5.7 % (3-13); PLATELET COUNT 292 10^3/uL (150-450); RED BLOOD COUNT 3.82 10^6/uL (3.72-5.28); RED CELL DISTRIBUTION WIDTH 13.5 % (11.5-14.0); TOTAL CELLS COUNTED % (AUTO) 100 %; WHITE BLOOD COUNT 9.6 10^3/uL (4.0-10.5)
[2017-09-01 10:28] LABS: ALANINE AMINOTRANSFERASE 29 U/L (9-52); ALBUMIN 4.4 g/dL (3.5-5.0); ALKALINE PHOSPHATASE 67 U/L (38-126); ANION GAP 14 (5-19); ASPARTATE AMINO TRANSFERASE 25 U/L (14-36); BILIRUBIN,DIRECT 0.3 mg/dL (0.0-0.4); BILIRUBIN,TOTAL 0.3 mg/dL (0.2-1.3); BLOOD UREA NITROGEN 13 mg/dL (7-20); CALCIUM 9.6 mg/dL (8.4-10.2); CARBON DIOXIDE 24 mmol/L (22-30); CHLORIDE 108 mmol/L (98-107); GLUCOSE 93 mg/dL (75-110); POTASSIUM 4.5 mmol/L (3.6-5.0); SODIUM 145.7 mmol/L (137-145); TOTAL PROTEIN 7.7 g/dL (6.3-8.2)
--- NOTE | 2017-09-01 10:54 | RADIOLOGY REPORT (SQ) ---
EXAM DESCRIPTION: U/S NON-OB PELVIS TV W/O DOP COMPLETED DATE/TIME: 09/01/2017 10:44 am REASON FOR STUDY: L pelvic pain, PMH ovary cysts COMPARISON: None. TECHNIQUE: Dynamic and static grayscale images acquired of the pelvis via transvaginal approach and recorded on PACS. Additional selected color Doppler and spectral images recorded. LIMITATIONS: None. FINDINGS: UTERUS: Contour normal. No mass. ENDOMETRIAL STRIPE: No focal or generalized thickening. No masses. CERVIX: No nabothian cysts. RIGHT OVARY AND DOPPLER: Normal size. No worrisome masses. Normal arterial vascular flow without evid ence for torsion. LEFT OVARY AND DOPPLER: Normal size. No worrisome masses. Normal arterial vascular flow without evide nce for torsion. FREE FLUID: Small amount. OTHER: No other significant finding. MEASUREMENTS: UTERUS: 9.3 x 5.5 x 5.6 cm ENDOMETRIAL STRIPE: 10 mm RIGHT OVARY: 4.0 x 2.1 x 3.0 cm LEFT OVARY: 4.5 x 2.2 x 2.4 cm IMPRESSION: NORMAL TRANSVAGINAL PELVIC ULTRASOUND. TECHNICAL DOCUMENTATION: JOB ID: [id number]- All Rights Reserved Rev-08/01 Reading location - IP/workstation name: [email or web address]
[2017-09-01 11:15] LABS: APPEARANCE,URINE SLIGHTLY-CLOUDY; BILIRUBIN,URINE NEGATIVE (NEGATIVE); COLOR,URINE YELLOW; GLUCOSE, URINE NEGATIVE (NEGATIVE); KETONES,URINE NEGATIVE (NEGATIVE); LEUKOCYTE ESTERASE,URINE SMALL (NEGATIVE); NITRITE,URINE NEGATIVE (NEGATIVE); PROTEIN,URINE NEGATIVE (NEGATIVE); URINE SPECIFIC GRAVITY 1.009; UROBILINOGEN,URINE NEGATIVE mg/dL (<2.0)
--- NOTE | 2017-09-01 13:01 | RADIOLOGY REPORT (SQ) ---
EXAM DESCRIPTION: CT LTD RENAL STONE PROTOCOL ON COMPLETED DATE/TIME: 09/01/2017 12:33 pm REASON FOR STUDY: LEFT PELVIC PAIN, HEMATURIA COMPARISON: None. TECHNIQUE: CT scan of the abdomen and pelvis performed without intravenous or oral contrast. Images reviewed with lung, soft tissue, and bone windows. Reconstructed coronal and sagittal MPR images revi ewed. All images stored on PACS. All CT scanners at this facility use dose modulation, iterative reconstruction, and/or weight based d osing when appropriate to reduce radiation dose to as low as reasonably achievable (ALARA). [facility]: Dose Right [facility]: CareDose [facility]: Dose Right [facility]: Teradose 4D [facility]: [employer] RADIATION DOSE: mGy. LIMITATIONS: None. FINDINGS: LOWER CHEST: No significant findings. No nodules or infiltrates. NON-CONTRASTED LIVER, SPLEEN, ADRENALS: Evaluation limited by lack of IV contrast. No identified sign ificant masses. PANCREAS: No masses. No peripancreatic inflammatory changes. GALLBLADDER: Surgically absent. RIGHT KIDNEY AND URETER: No suspicious masses. Assessment limited by lack of IV contrast. No signif icant calcifications. No hydronephrosis or hydroureter. LEFT KIDNEY AND URETER: No suspicious masses. Assessment limited by lack of IV contrast. No signifi cant calcifications. No hydronephrosis or hydroureter. AORTA AND RETROPERITONEUM: No aneurysm. No retroperitoneal masses or adenopathy. BOWEL AND PERITONEAL CAVITY: No obvious masses or inflammatory changes. Small amount of free fluid. APPENDIX: Not visualized. PELVIS, BLADDER, AND ABDOMINAL WALL:No abnormal masses. No free fluid. Bladder normal. BONES: No significant findings. OTHER: No other significant finding. IMPRESSION: NO SIGNIFICANT OR ACUTE PROCESS IN THE ABDOMEN OR PELVIS. COMMENT: Quality ID # [id number]: Final reports with documentation of one or more dose reduction techniques (e.g., Automated exposure control, adjustment of the mA and/or kV according to patient size, use of iterative reconstruction technique) TECHNICAL DOCUMENTATION: JOB ID: [id number] [employer]- All Rights Reserved Reading location - IP/workstation name: [email or web address]
[2017-09-01] MEDS ORDERED: CEPHALEXIN 500 MG CAPSULE PO ONE (13:10)
[2017-09-01 14:14] VITALS: BP 115/71
== END 2017-09-01 14:14 | disposition home or self-care (01) ==
LOC: ER 08:16
DX: N39.0 Urinary tract infection, site not specified (principal); R31.9 Hematuria, unspecified; N94.6 Dysmenorrhea, unspecified; N92.6 Irregular menstruation, unspecified; R10.2 Pelvic and perineal pain; Z87.42 Personal history of other diseases of the female genital tract; Z79.899 Other long term (current) drug therapy; Z90.49 Acquired absence of other specified parts of digestive tract; Z98.51 Tubal ligation status
CPT/HCPCS: 36415; 76380; 76830; 80053; 81001; 84703; 85025; 87086; 99284

== ENCOUNTER 2017-11-03 22:46 | Emergency (ER) | payer BC ==
[2017-11-03 23:17] VITALS: BP 124/74
--- NOTE | 2017-11-04 00:12 | ER Document Report ---
ED Hand/Wrist Injury - General Chief Complaint: Finger Injury Stated Complaint: RING STUCK ON FINGER Time Seen by Provider: 11/03/17 23:27 Mode of Arrival: Ambulatory Information source: Patient Notes: 27-year-old female presents to ED for complaint of pain and swelling to her left ring finger with her 2 readings. She states she has tried ice lube and straining and has not been able to get the rings off. She states she is here now to get her rings cut off. She states the pain is getting severe on her hand. TRAVEL OUTSIDE OF THE [place] IN LAST 30 DAYS: No - HPI Injury to: Ring finger Onset: This afternoon Where: Home Timing: Still present Quality of pain: Pressure, Throbbing Severity: Severe Pain Level: 5 Context: Other - Ring stuck on finger - Related Data Allergies/Adverse Reactions: No Known Allergies Allergy (Verified 05/27/17 16:00) Past Medical History - General Information source: Patient - Social History Smoking Status: Never Smoker Cigarette use (# per day): No Chew tobacco use (# tins/day): No Smoking Education Provided: No Frequency of alcohol use: None Drug Abuse: None Occupation: [employer] Lives with: Family Family History: Reviewed & Not Pertinent Patient has suicidal ideation: No Patient has homicidal ideation: No - Past Medical History Cardiac Medical History: Reports: None Pulmonary Medical History: Reports: None EENT Medical History: Reports: None Neurological Medical History: Reports: None Endocrine Medical History: Reports: None Renal/ Medical History: Reports: None Malignancy Medical History: Reports: None GI Medical History: Reports: None Musculoskeletal Medical History: Reports None Skin Medical History: Reports None Psychiatric Medical History: Reports: None Traumatic Medical History: Reports: None Infectious Medical History: Reports: None Past Surgical History: Reports: Hx Cholecystectomy, Hx Tubal Ligation - Immunizations Hx Diphtheria, Pertussis, Tetanus Vaccination: Yes Review of Systems - Review of Systems Constitutional: No symptoms reported EENT: No symptoms reported Cardiovascular: No symptoms reported Respiratory: No symptoms reported Gastrointestinal: No symptoms reported Genitourinary: No symptoms reported Female Genitourinary: No symptoms reported Musculoskeletal: Other - Ring stuck on left ring finger causing pain and swelling to the finger Skin: No symptoms reported Hematologic/Lymphatic: No symptoms reported Neurological/Psychological: No symptoms reported -: Yes All other systems reviewed and negative Physical Exam - Vital signs Vitals: Temp Pulse Resp BP Pulse Ox 98.5 F 82 18 124/74 99 11/03/17 23:14 11/03/17 23:14 11/03/17 23:14 11/03/17 23:14 11/03/17 23:14 Interpretation: Normal - General General appearance: Appears well, Alert - HEENT Head: Normocephalic, Atraumatic Eyes: Normal Pupils: PERRL - Respiratory Respiratory status: No respiratory distress Chest status: Nontender Breath sounds: Normal Chest palpation: Normal - Cardiovascular Rhythm: Regular Heart sounds: Normal auscultation Murmur: No - Abdominal Inspection: Normal Distension: No distension Bowel sounds: Normal Tenderness: Nontender Organomegaly: No organomegaly - Back Back: Normal, Nontender - Extremities General upper extremity: Normal inspection, Nontender, Normal color, Normal ROM , Normal temperature General lower extremity: Normal color, Normal ROM, Normal temperature, Normal weight bearing. No: Patrice's sign Hand: Tender, No evidence of human bite, No evidence of FB, Swelling - Pain and swelling to the left ring finger due to ring being caught on the finger and unable to remove it after many attempts. No: Abrasion, Deformity, Dislocation, Ecchymosis, Instability, Laceration, Nail injury, Tendon deficit - Neurological Neuro grossly intact: Yes Cognition: Normal Orientation: AAOx4 [place] Coma Scale Eye Opening: Spontaneous Hannah Coma Scale Verbal: Oriented Hannah Coma Scale Motor: Obeys Commands Hannah Coma Scale Total: 15 Speech: Normal Motor strength normal: LUE, RUE, LLE, RLE Sensory: Normal - Psychological Associated symptoms: Normal affect, Normal mood - Skin Skin Temperature: Warm Skin Moisture: Dry Skin Color: Normal Course - Re-evaluation Re-evalutation: 11/04/17 02:52 After much effort we were able to cut the ring off the finger. The ring was very swollen and tender with a blister underneath the where the ring was. The rings were given back to the patient to take home. Patient did sign a consent for the ring removal before the rings were removed. - Vital Signs Vital signs: Temp Pulse Resp BP Pulse Ox 98.5 F 82 18 124/74 99 11/03/17 23:14 11/03/17 23:14 11/03/17 23:14 11/03/17 23:14 11/03/17 23:14 Discharge - Discharge Clinical Impression: Ring stuck on finger left hand, Swelling of left ring finger Condition: Stable Disposition: HOME, SELF-CARE Instructions: Family Physicians / Practices Additional Instructions: You were tonight for a ring stuck on your ring finger of the left hand. Your ring was removed with a ring cutter and the ring given back to you. Take the rings to the jeweler and see if they can repair them and size them larger. Please anytime your finger starts to swell remove the rings promptly and do not let him get to the size they did today before removing the arrangements If you become please remove you have rings as soon as her fingers start to swell. Ice & Elevation Apply ice packs frequently against the painful area. Many different schedules are recommended, such as "20 minutes on, 20 minutes off" or "one hour ice, two hours rest." If you need to work, you may need to go longer between ice treatments. You should plan to have the area ice packed AT LEAST one- fourth of the time. The ice should be applied over the wrap, tape, or splint, or over a layer of cloth -- not directly against the skin. Some ice bags have a built-in cloth and can be put directly on the skin. Your injured part should be elevated as much as possible over the next 48 hours. Try to keep the injury above the level of the heart. Avoid use of the injured area. Elevation and rest will decrease the swelling. Ibuprofen Ibuprofen is an excellent, safe drug for pain control. In addition, it has potent antiinflammatory effects which are beneficial, especially in the treatment of injuries, arthritis, or tendonitis. It's best to take ibuprofen with food. Persons with ulcer disease or allergy to aspirin should notify their physician of this before taking ibuprofen. Take the medication exactly as prescribed. Don't take additional doses unless instructed to do so by your doctor. If you develop wheezing, shortness of breath, hives, faintness, stomach pain, vomiting, or dark black stools, return for re-evaluation at once. FOLLOW-UP CARE: If you have been referred to a physician for follow-up care, call the physician s office for an appointment as you were instructed or within the next two days. If you experience worsening or a significant change in your symptoms, notify the physician immediately or return to the Emergency Department at any time for re-evaluation.
[2017-11-04] MEDS ORDERED: IBUPROFEN 800 MG TABLET PO ONE (00:31)
== END 2017-11-04 01:39 | disposition home or self-care (01) ==
LOC: ER 22:46
DX: S60.445A External constriction of left ring finger, initial encounter (principal); W49.04XA Ring or other jewelry causing external constriction, initial encounter
CPT/HCPCS: 99283

== ENCOUNTER 2018-01-06 17:56 | Emergency (ER) | payer BC ==
[2018-01-06 18:09] VITALS: BP 125/95
[2018-01-06] MEDS ORDERED: KETOROLAC TROMETHAMINE 60 MG/2 ML SDV IM ONE (18:52)
--- NOTE | 2018-01-06 18:54 | ER Document Report ---
ED General - General Chief Complaint: Lower Abdominal Pain Stated Complaint: ABDOMINAL PAIN Time Seen by Provider: 01/06/18 18:47 Notes: Patient is a 27-year-old female that presents to the emergency department for chief complaint of pelvic pain. Patient states that she started on her period, she usually gets severe pelvic cramping, as a result. She has PCO S. She gets erratic periods, when she does get them they are severe and pain describes it as a sharp cramping pain bilaterally. Denies having any dysuria hematuria. Her period is not any heavier than usual. Denies any fevers, chills, night sweats, nausea, vomiting, chest pain or shortness of breath. Past Medical History: PCO S Past Surgical History: Cholecystectomy Social History: Denies tobacco, alcohol or drug use Family History: Reviewed and noncontributory for presenting illness Allergies: Reviewed, see documented allergy list. REVIEW OF SYSTEMS: Unless otherwise stated in this report the patient's positive and negative responses for review of systems for constitutional, eyes, ENT, cardiovascular, respiratory, gastrointestinal, neurological, genitourinary, musculoskeletal, and integumentary systems and related systems to the presenting problem are either as stated in the HPI or were not pertinent or were negative for the symptoms and/or complaints related to the presenting medical problem. PHYSICAL EXAMINATION: Vital signs reviewed, nursing noted reviewed. GENERAL: Well-appearing, well-nourished and in no acute distress. HEAD: Atraumatic, normocephalic. EYES: Eyes appear normal, extraocular movements intact, sclera anicteric, conjunctiva are normal. ENT: nares patent, oropharynx clear without exudates. Moist mucous membranes. NECK: Normal range of motion, supple without lymphadenopathy LUNGS: Breath sounds clear to auscultation bilaterally and equal. No wheezes rales or rhonchi. HEART: Regular rate and rhythm without murmurs ABDOMEN: Soft, bilateral lower abdominal tenderness with palpation, normoactive bowel sounds. No rebound, guarding, or rigidity. No masses appreciated. EXTREMITIES: Nontender, good range of motion, no pitting or edema. NEUROLOGICAL: No focal neurological deficits. Moves all extremities spontaneously Motor and sensory grossly intact on exam. PSYCH: Normal mood, normal affect. SKIN: Warm, Dry, normal turgor, no rashes or lesions noted on exposed skin TRAVEL OUTSIDE OF THE [place] IN LAST 30 DAYS: No - Related Data Allergies/Adverse Reactions: No Known Allergies Allergy (Verified 01/06/18 17:56) Past Medical History - Social History Smoking Status: Never Smoker Chew tobacco use (# tins/day): No Frequency of alcohol use: None Drug Abuse: None Family History: Reviewed & Not Pertinent Patient has suicidal ideation: No Patient has homicidal ideation: No - Past Medical History Cardiac Medical History: Denies: Hx Coronary Artery Disease, Hx Heart Attack, Hx Hypertension Pulmonary Medical History: Denies: Hx Asthma, Hx Bronchitis, Hx COPD, Hx Pneumonia Neurological Medical History: Denies: Hx Cerebrovascular Accident Renal/ Medical History: Denies: Hx Peritoneal Dialysis Musculoskeletal Medical History: Denies Hx Arthritis Past Surgical History: Reports: Hx Cholecystectomy, Hx Tubal Ligation. Denies: Hx Pacemaker - Immunizations Hx Diphtheria, Pertussis, Tetanus Vaccination: Yes Physical Exam - Vital signs Vitals: Temp Pulse Resp BP Pulse Ox 98.0 F 94 14 125/95 H 99 01/06/18 18:07 01/06/18 18:07 01/06/18 18:07 01/06/18 18:07 01/06/18 18:07 Course - Re-evaluation Re-evalutation: Patient seen and examined vital signs reviewed. Laboratory data and imaging were ordered as appropriate for the patient's presenting symptoms and complaint, with consideration of any critical or life threatening conditions that may be associated with their obtained history and exam as noted above. Patient was treated with IM Toradol 60 mg Results were reviewed when available and demonstrated urinalysis positive for blood, contaminant from the patient's menstrual period, no evidence of infection The patient was re-evaluated and was much improved, pain was resolved Evaluation was most consistent with dysmenorrhea, discharge the patient home with a prescription for naproxen she is given 6, 5 mg [place], to take if needed this evening, and she states she has an appointment with [facility] in the morning. Results were discussed with the patient at this point, after careful consideration I feel that that patient can be discharged from the emergency department, the patient was educated treatments and reasons to return to the emergency department based on their presumed diagnosis as noted above, they were advised to followup with a primary care physician in 2-3 days. Patient was agreeable to plan of care. *Note is created using voice recognition software and may contain spelling, syntax or grammatical errors. Laboratory 01/06/18 19:00 Urine Color COLORLESS Urine Appearance CLEAR Urine pH 6.0 Ur Specific [place] 1.003 Urine Protein NEGATIVE Urine Glucose (UA) NEGATIVE Urine Ketones NEGATIVE Urine Blood LARGE H Urine Nitrite NEGATIVE Urine Bilirubin NEGATIVE Urine Urobilinogen NEGATIVE Ur Leukocyte Esterase NEGATIVE Urine WBC (Auto) 1 Urine RBC (Auto) 1 Urine Mucus (Auto) RARE Urine Ascorbic Acid NEGATIVE - Vital Signs Vital signs: Temp Pulse Resp BP Pulse Ox 98.0 F 94 14 125/95 H 99 01/06/18 18:07 01/06/18 18:07 01/06/18 18:07 01/06/18 18:07 01/06/18 18:07 - Laboratory Laboratory results interpreted by me: 01/06/18 19:00 Urine Blood LARGE H Discharge - Discharge Clinical Impression: Dysmenorrhea Condition: Stable Disposition: HOME, SELF-CARE Instructions: Dysmenorrhea ([facility]) Additional Instructions: Please return to the emergency department if you have any worsening, or concern of your symptoms. Please return to the emergency department if you develop chest pain, difficulty breathing, severe abdominal pain, or ongoing vomiting. Please follow-up with your primary care physician in 2-3 days and any other recommended physicians. If prescribed, take all medications as directed. If you have any questions or concerns do not hesitate to return the emergency department for evaluation. Prescriptions: Naproxen [Naprosyn] 500 mg PO BID #30 tablet Referrals: [facility] [Provider Group] - Follow up in 3-5 days
[2018-01-06 19:30] LABS: APPEARANCE,URINE CLEAR; BILIRUBIN,URINE NEGATIVE (NEGATIVE); COLOR,URINE COLORLESS; GLUCOSE, URINE NEGATIVE (NEGATIVE); KETONES,URINE NEGATIVE (NEGATIVE); LEUKOCYTE ESTERASE,URINE NEGATIVE (NEGATIVE); NITRITE,URINE NEGATIVE (NEGATIVE); PROTEIN,URINE NEGATIVE (NEGATIVE); URINE SPECIFIC GRAVITY 1.003; UROBILINOGEN,URINE NEGATIVE mg/dL (<2.0)
[2018-01-06] MEDS ORDERED: HYDROCODONE/ACETAMINOPHEN 5-325 MG (6 TAB/ER DISP) PO PRN (20:10)
== END 2018-01-06 20:21 | disposition home or self-care (01) ==
LOC: ER 17:56
DX: N94.6 Dysmenorrhea, unspecified (principal); E28.2 Polycystic ovarian syndrome; R10.2 Pelvic and perineal pain; Z90.49 Acquired absence of other specified parts of digestive tract; Z98.51 Tubal ligation status
CPT/HCPCS: 99284; 96372; 81001; J1885

== ENCOUNTER 2018-01-29 05:23 | Day surgery (SDC) | payer BC ==
[2018-01-26 11:10] LABS: APPEARANCE,URINE SLIGHTLY-CLOUDY; BILIRUBIN,URINE NEGATIVE (NEGATIVE); COLOR,URINE COLORLESS; GLUCOSE, URINE NEGATIVE (NEGATIVE); KETONES,URINE NEGATIVE (NEGATIVE); LEUKOCYTE ESTERASE,URINE NEGATIVE (NEGATIVE); NITRITE,URINE NEGATIVE (NEGATIVE); PROTEIN,URINE NEGATIVE (NEGATIVE); URINE SPECIFIC GRAVITY 1.005; UROBILINOGEN,URINE NEGATIVE mg/dL (<2.0)
[2018-01-26 11:15] LABS: HEMATOCRIT 31.9 % (36.0-47.0); MEAN CORPUSCULAR HGB CONC 34.5 g/dL (32.0-36.0); MEAN CORPUSCULAR VOLUME 93 fl (80-97); PLATELET COUNT 324 10^3/uL (150-450); RED BLOOD COUNT 3.43 10^6/uL (3.72-5.28); RED CELL DISTRIBUTION WIDTH 13.5 % (11.5-14.0); WHITE BLOOD COUNT 4.3 10^3/uL (4.0-10.5)
[2018-01-26 11:28] LABS: ALANINE AMINOTRANSFERASE 12 U/L (9-52); ALBUMIN 4.5 g/dL (3.5-5.0); ALKALINE PHOSPHATASE 67 U/L (38-126); ANION GAP 13 (5-19); ASPARTATE AMINO TRANSFERASE 21 U/L (14-36); BILIRUBIN,DIRECT 0.3 mg/dL (0.0-0.4); BILIRUBIN,TOTAL 0.3 mg/dL (0.2-1.3); BLOOD UREA NITROGEN 8 mg/dL (7-20); CALCIUM 9.7 mg/dL (8.4-10.2); CARBON DIOXIDE 24 mmol/L (22-30); CHLORIDE 106 mmol/L (98-107); GLUCOSE 94 mg/dL (75-110); POTASSIUM 4.5 mmol/L (3.6-5.0); SODIUM 143.4 mmol/L (137-145); TOTAL PROTEIN 7.9 g/dL (6.3-8.2)
[~2018-01-29 05:23] MED LIST: CEFAZOLIN 1 GM/D5W RTU 1 GM/50 ML RTUPB IV PRN
[2018-01-29] MEDS ORDERED: CEFAZOLIN 1 GM/D5W RTU 1 GM/50 ML RTUPB IV ONE (05:37)
[2018-01-29] MEDS ORDERED: MIDAZOLAM 2 MG/2 ML INJ ONE (07:10)
[2018-01-29] MEDS ORDERED: EPHEDRINE SULFATE INJ 50 MG/1 ML AMPULE ONE (07:10)
[2018-01-29] MEDS ORDERED: FENTANYL CITRATE INJ/PF 250 MCG/5 ML AMPULE ONE (07:10)
[2018-01-29] MEDS ORDERED: HYDROMORPHONE HCL INJ/PF 2 MG/ML AMPULE ONE (07:10)
[2018-01-29] MEDS ORDERED: ACETAMINOPHEN 1,000 MG/100 ML RTUPB IV ONE (07:11)
[2018-01-29] MEDS ORDERED: PROPOFOL INJ 200 MG/20 ML VIAL IV ONE (07:11)
[2018-01-29] MEDS ORDERED: MEPERIDINE HCL/PF INJ 25 MG/1 ML DISP.SYRIN IV PRN (08:10)
[2018-01-29] MEDS ORDERED: DIPHENHYDRAMINE HCL 50 MG/ML VIAL IV PRN (08:10)
[2018-01-29] MEDS ORDERED: FENTANYL CITRATE INJ/PF 100 MCG/2 ML AMPUL IV PRN ×3 (08:10)
[2018-01-29] MEDS ORDERED: PROMETHAZINE HCL INJ 25 MG/1 ML VIAL IV PRN (08:10)
[2018-01-29] MEDS: FENTANYL CITRATE INJ/PF 100 MCG/2 ML AMPUL ONE ×2 (09:42→09:47)
[2018-01-29] MEDS ORDERED: MORPHINE SULFATE 10 MG/ML INJ IV PRN (09:59)
[2018-01-29] MEDS ORDERED: PROMETHAZINE HCL INJ 25 MG/1 ML VIAL ONE (10:01)
[2018-01-29] MEDS: KETOROLAC TROMETHAMINE INJ/PF 30 MG/1 ML SDV IV SCH ×2 (11:04→17:07)
[2018-01-29] MEDS ORDERED: ROCURONIUM BROMIDE INJ 50 MG/5 ML VIAL IV ONE (13:57)
[2018-01-29] MEDS ORDERED: GLYCOPYRROLATE 1 MG/5 ML SYRINGE ONE (13:57)
[2018-01-29] MEDS ORDERED: ONDANSETRON HCL INJ/PF 4 MG/2 ML SDV ONE (13:57)
[2018-01-29] MEDS ORDERED: NEOSTIGMINE METHYLSULFATE 10 MG/10 ML VIAL ONE (13:57)
[2018-01-29] MEDS ORDERED: SUCCINYLCHOLINE CHLORIDE INJ 200 MG/10 ML VIAL ONE (13:57)
[2018-01-29] MEDS ORDERED: DEXAMETHASONE SOD PHOSPHATE INJ 4 MG/1 ML VIAL ONE (13:57)
[2018-01-29] MEDS ORDERED: ACETAMINOPHEN 1,000 MG/100 ML RTUPB IV SCH ×2 (16:00)
[2018-01-29] MEDS: RINGERS SOLUTION,LACTATED 1,000 ML IV PRN (17:07)
[2018-01-29] MEDS: OXYCODONE-ACETAMINOPHEN 5-325 MG TABLET PO PRN ×2 (17:08→23:05)
[2018-01-30] MEDS: KETOROLAC TROMETHAMINE INJ/PF 30 MG/1 ML SDV IV SCH (01:42)
[2018-01-30] MEDS: RINGERS SOLUTION,LACTATED 1,000 ML IV PRN (01:46)
[2018-01-30 09:07] VITALS: BP 105/67
[2018-01-30] MEDS ORDERED: IBUPROFEN 800 MG TABLET PO PRN (10:00)
--- NOTE | 2018-02-13 13:41 | PDOC DISCHARGE SUMMARY ---
General - Admit/Disc Date/PCP Discharge Date: 01/30/18 - Discharge Diagnosis (1) Abnormal uterine bleeding Is this a current diagnosis for this admission?: Yes (2) Dysmenorrhea Is this a current diagnosis for this admission?: Yes - Additional Information Discharge Diet: As Tolerated Discharge Activity: Balance Activity w/Rest, No Driving, No Lifting Over 10 Pounds, No Lifting/Push/Pulling, Pelvic Rest, No tub bath Home Medications: Metoprolol Succinate [Toprol Xl 25 mg Tab.sr] 25 mg PO DAILY 02/11/18 History of Present Illness History of Present Illness: MIRIAM LANDEROS is a 27 year old female presented for RATL due to AUB and dysmenorreha Hospital Course Hospital Course: underwent RATLH w/ b/l salpingectomy without difficulty. has had an unremarkable post operative course. ready for discharge home Physical Exam - Physical Exam Vital Signs: Temp Pulse Resp BP Pulse Ox 98.4 F 75 18 112/63 97 01/30/18 08:56 01/30/18 08:56 01/30/18 08:56 01/30/18 08:56 01/30/18 08:56 General appearance: PRESENT: no acute distress, cooperative - incisions clean/ dry/intact and healing well Result Laboratory Results: 01/26/18 09:57 01/26/18 09:57 Plan Discharge Plan: discharge home with insructions for scheduled follow up. patient given strict precautions
--- NOTE | 2018-02-13 14:51 | OPERATIVE REPORT E ---
Operative Report NAME: MIRIAM LANDEROS : 1990 AGE: 27Y DATE OF SURGERY: 01/29/2018 ROOM: 209 PREOPERATIVE DIAGNOSES: 1. Abnormal uterine bleeding. 2. Dysmenorrhea. 3. Anemia. POSTOPERATIVE DIAGNOSES: 1. Abnormal uterine bleeding. 2. Dysmenorrhea. 3. Anemia. OPERATION: Robotic-assisted total laparoscopic hysterectomy with bilateral salpingectomy. SURGEON: DANIEL BUSTAMANTE M.D. ANESTHESIOLOGIST: Raman Funez M.D. ANESTHESIA: General. FINDINGS: Approximately 14 week sized uterus. Normal ovaries and fallopian tubes. COMPLICATIONS: None. ESTIMATED BLOOD LOSS: 100 mL. SPECIMENS REMOVED: Uterus, cervix, and bilateral fallopian tubes. PROCEDURE IN DETAIL: The patient was taken to the operating room, prepared, and draped in the normal sterile fashion in the dorsal lithotomy position. Under sterile conditions a May catheter was placed to gravity. A sterile speculum was placed into the vagina and the cervix was grasped with a single-tooth tenaculum and prepped with Betadine. The uterus was then sounded to approximately 10 cm and the cervix was dilated to accommodate a medium VCare uterine manipulator which was placed without difficulty. The speculum and tenaculum were removed. Gloves were changed and attention was turned to the upper portion of the case where a skin incision was made just above the umbilicus approximately 2 cm wide. This was extended down to the fascia and the fascia was entered sharply with Mayos and extended laterally with Mayos. The GelPort was placed and the abdomen was inflated with approximately 2 L of CO2 gas. The camera was introduced in the camera port and the patient was placed in steep Trendelenburg with the above findings noted. Under direct visualization the right and left 5 mm trocars were placed approximately 10 cm on either side of the umbilicus. The robot was then docked and the monopolar scissors and vessel sealer were placed accordingly. I then descrubbed and sat at the console where beginning with the left adnexa I removed the left fallopian tube using the vessel sealer and monopolar scissors as needed. Once this was freed and ligated from the fundus it was removed by the catering assistant through the assistance port. I then continued with skeletonization and ligation of the uterine artery at the utero-ovarian ligament continuing with the vessel sealer down to the level of the external cervical os. The bladder flap was started using monopolar scissors and blunt dissection on this side. I then proceeded to the right adnexa where in a similar fashion the fallopian tube was again removed and the right utero-ovarian ligament was transected using the vessel sealer. The rest of the uterine artery was again transected and ligated using the vessel sealer to the level of the external cervical os, and the bladder flap was completed using the monopolar scissors and blunt dissection. The colporrhaphy was then begun on the posterior aspect and continued around circumferentially following the VCare cup through the mucosa until the specimen was completely freed and removed through the vagina without difficulty. Instruments were changed to the Bryce Needle Careers Adviser and the ProGrasp. A V-Loc needle was introduced through the assistance port and the vaginal cuff was then closed using the V-Loc suture without difficulty. This suture was then ligated and the needle was removed through the assistance port. I then inspected the ureters and found them to be peristalsing normally with no signs of hydronephrosis. The abdomen was copiously suction irrigated. The case was then concluded. Instruments were removed. The fascia at the umbilical skin incision was closed with 0 Vicryl. The subcutaneous layer was closed with plain catgut and the skin was closed at all 3 sites with 4-0 Vicryl. The patient tolerated the procedure well. Sponge, lap, and needle counts were correct x2, and the patient was taken to recovery in stable condition. DICTATING PHYSICIAN: DANIEL BUSTAMANTE M.D. [id number] PHY#: [id number] ID: [id number] JOB#: [id number] ACCT: [id number] cc:DANIEL BUSTAMANTE M.D. >
== END 2018-01-30 09:40 | disposition home or self-care (01) ==
LOC: OROUT 05:23 → 2N 10:48 → OROUT 01-30 09:40
PROVIDERS: ATTEND Obstetrics & Gynecology
DX: N92.1 Excessive and frequent menstruation with irregular cycle (principal); N93.9 Abnormal uterine and vaginal bleeding, unspecified; N88.8 Other specified noninflammatory disorders of cervix uteri; D64.9 Anemia, unspecified; Z23 Encounter for immunization; F41.9 Anxiety disorder, unspecified; F32.9 Major depressive disorder, single episode, unspecified; Z01.818 Encounter for other preprocedural examination; Z79.899 Other long term (current) drug therapy
CPT/HCPCS: 58571; S2900; 36415; 80053; 81001; 84703; 85027; 86850; 86900; 86901; 88307; 90471; 90686; 944; G0008; J0131; J0330; J0690; J1100; J1170; J1885; J2250; J2270; J2405; J2550; J2704; J3010; J3490; J7120

== ENCOUNTER 2018-02-10 18:07 | Emergency (ER) | payer BC ==
[2018-02-10 21:56] LABS: APPEARANCE,URINE SLIGHTLY-CLOUDY; BILIRUBIN,URINE NEGATIVE (NEGATIVE); COLOR,URINE YELLOW; GLUCOSE, URINE NEGATIVE (NEGATIVE); KETONES,URINE 20 mg/dL (NEGATIVE); LEUKOCYTE ESTERASE,URINE SMALL (NEGATIVE); NITRITE,URINE NEGATIVE (NEGATIVE); PROTEIN,URINE NEGATIVE (NEGATIVE); URINE SPECIFIC GRAVITY 1.018; UROBILINOGEN,URINE NEGATIVE mg/dL (<2.0)
--- NOTE | 2018-02-10 21:57 | ER Document Report ---
ED Medical Screen (RME) - General Chief Complaint: Post Surgical Pain Stated Complaint: POST SURGICAL PAIN Time Seen by Provider: 02/10/18 21:44 Mode of Arrival: Ambulatory Information source: Patient Notes: 27-year-old female presented to ED for complaint of pelvic pain starting on Friday. She states she had a hysterectomy 01/29/2018. She states that she and her decided to have sexual intercourse on Friday. She thought it is been long enough after her hysterectomy. She states the pain started on Friday and got much worse today. She denies any vaginal bleeding any nausea or vomiting. She states she had Percocet but they are all gone. She states that she took ibuprofen but had no relief. She states [facility] and they did not have an opening and told her if the pain got worse to come into the emergency room. She states that the pain is much worse. Patient is alert and oriented respirations regular and unlabored. Abdomen is tender to palpation. Bowel sounds are active. No opening to the incision.. I have greeted and performed a rapid initial assessment of this patient. A comprehensive ED assessment and evaluation of the patient, analysis of test results and completion of medical decision making process will be conducted by an additional ED providers. TRAVEL OUTSIDE OF THE [place] IN LAST 30 DAYS: No - Related Data Allergies/Adverse Reactions: No Known Allergies Allergy (Verified 01/29/18 06:10) Past Medical History - Social History Drug Abuse: None - Past Medical History Cardiac Medical History: Denies: Hx Coronary Artery Disease, Hx Heart Attack, Hx Hypertension Pulmonary Medical History: Denies: Hx Asthma, Hx Bronchitis, Hx COPD, Hx Pneumonia Neurological Medical History: Denies: Hx Cerebrovascular Accident Renal/ Medical History: Denies: Hx Peritoneal Dialysis Musculoskeltal Medical History: Denies Hx Arthritis Past Surgical History: Reports: Hx Cholecystectomy, Hx Hysterectomy, Hx Tubal Ligation. Denies: Hx Pacemaker - Immunizations Hx Diphtheria, Pertussis, Tetanus Vaccination: Yes History of Influenza Vaccine for 12/2016 - 05/2017 Season: No Physical Exam - Vital signs Vitals: Temp Pulse Resp BP Pulse Ox 99.9 F 119 H 14 129/77 H 100 02/10/18 18:30 02/10/18 18:30 02/10/18 18:30 02/10/18 18:30 11/27/18 18:30 Course - Vital Signs Vital signs: Temp Pulse Resp BP Pulse Ox 99.9 F 119 H 14 129/77 H 100 02/10/18 18:30 02/10/18 18:30 02/10/18 18:30 02/10/18 18:30 02/10/18 18:30
[2018-02-11] MEDS ORDERED: OXYCODONE-ACETAMINOPHEN 5-325 MG TABLET PO ONE
[2018-02-11] MEDS ORDERED: ONDANSETRON 4 MG TAB.RAPDIS PO ONE
[2018-02-11] MEDS ORDERED: METOPROLOL SUCCINATE 25 MG TAB.SR.24H PO ONE (00:01)
--- NOTE | 2018-02-11 00:01 | ER Document Report ---
ED GI/ - General Chief Complaint: Post Surgical Pain Stated Complaint: POST SURGICAL PAIN Time Seen by Provider: 02/10/18 21:44 Mode of Arrival: Ambulatory Notes: Patient is a 27-year-old female that comes to the emergency department for chief complaint of mid lower abdominal pain. She states that she had a partial hysterectomy on 01/29/[address] Wells, she states that Friday night she had sexual intercourse, she states that Friday she began having pain in the pain has increased until now. She denies vaginal bleeding, nausea or vomiting, fever or chills. She does report some dysuria. Wounds are not bothering her. Past medical history of tachycardia, normally takes metoprolol succinate 25 mg, forgot to take it earlier today. She has had a cholecystectomy as well. She follows with [facility]. TRAVEL OUTSIDE OF THE [place] IN LAST 30 DAYS: No - Related Data Allergies/Adverse Reactions: No Known Allergies Allergy (Verified 01/29/18 06:10) Past Medical History - General Information source: Patient - Social History Smoking Status: Never Smoker Drug Abuse: None Lives with: Family Family History: Reviewed & Not Pertinent Patient has suicidal ideation: No Patient has homicidal ideation: No - Past Medical History Cardiac Medical History: Denies: Hx Coronary Artery Disease, Hx Heart Attack, Hx Hypertension Pulmonary Medical History: Denies: Hx Asthma, Hx Bronchitis, Hx COPD, Hx Pneumonia Neurological Medical History: Denies: Hx Cerebrovascular Accident Renal/ Medical History: Denies: Hx Peritoneal Dialysis Musculoskeletal Medical History: Denies Hx Arthritis Past Surgical History: Reports: Hx Cholecystectomy, Hx Hysterectomy, Hx Tubal Ligation. Denies: Hx Pacemaker - Immunizations Hx Diphtheria, Pertussis, Tetanus Vaccination: Yes Review of Systems - Review of Systems Constitutional: No symptoms reported EENT: No symptoms reported Cardiovascular: No symptoms reported Respiratory: No symptoms reported Gastrointestinal: See HPI Genitourinary: See HPI Female Genitourinary: See HPI Musculoskeletal: No symptoms reported Skin: No symptoms reported Hematologic/Lymphatic: No symptoms reported Neurological/Psychological: No symptoms reported Physical Exam - Vital signs Vitals: Temp Pulse Resp BP Pulse Ox 99.9 F 119 H 14 129/77 H 100 02/10/18 18:30 02/10/18 18:30 02/10/18 18:30 02/10/18 18:30 02/10/18 18:30 - Notes Notes: GENERAL: Alert, interacts well. No acute distress. HEAD: Normocephalic, atraumatic. EYES: Pupils equal, round, and reactive to light. Extraocular movements intact. ENT: Oral mucosa moist, tongue midline. Oropharynx unremarkable. Airway patent. Nares patent, no nasal septal hematoma, TM's intact. NECK: Full range of motion. Supple. Trachea midline. LUNGS: Clear to auscultation bilaterally, no wheezes, rales, or rhonchi. No respiratory distress. HEART: Tachycardia, normal rhythm. No murmur ABDOMEN: Mild generalized tenderness in the lower abdomen without guarding. Postsurgical wounds over the abdomen without erythema, noted tenderness; good closure. GENITOURINARY: Vaginal cuff appears normal, no bleeding, no bowel in the vaginal vault, no other concerning antibody noted. Exam performed in sterile fashion. Mica RODGERS present during exam. EXTREMITIES: Moves all 4 extremities spontaneously. No edema, normal radial and dorsalis pedis pulses bilaterally. No cyanosis. BACK: no cervical, thoracic, lumbar midline tenderness. No saddle anesthesia, normal distal neurovascular exam. NEUROLOGICAL: Alert and oriented x3. Normal speech. [cranial nerves II through XII grossly intact]. PSYCH: Normal affect, normal mood. SKIN: Warm, dry, normal turgor. No rashes or lesions noted. Course - Re-evaluation Re-evalutation: Patient has generalized lower abdominal tenderness which is mild, no guarding. Unremarkable vital signs except tachycardia, patient was given her dose of metoprolol and after this tachycardia resolved. No fever, no reported bleeding. CBC unremarkable, chemistry unremarkable, urinalysis nonspecific with contamination. Ultrasound showing no acute findings. Ultrasound was ordered in triage. I called and spoke with Dr. Johnson, on-call for Dr. Wells with [facility]. Recommendation is to perform a sterile speculum exam and if patient does not have bleeding, evidence of cuff damage, or evidence of intestine in the vaginal vault that patient can be discharged with very close follow-up, she states that she will call the patient tomorrow to be seen in the office. Speculum exam was performed in sterile fashion, shows no bleeding, intestinal prolapse, or other concerning abnormality. No noted tenderness or concerning findings. Patient was very seriously instructed not to have intercourse until cleared by [facility]. Patient states understanding and agreement. Discussed return precautions. Patient states understanding and agreement. - Vital Signs Vital signs: Temp Pulse Resp BP Pulse Ox 97.8 F 91 19 120/68 99 02/11/18 02:36 02/11/18 02:36 02/11/18 02:36 02/11/18 02:36 02/11/18 02:36 - Laboratory Result Diagrams: 02/11/18 00:15 02/11/18 01:20 Laboratory results interpreted by me: 02/10/18 02/11/18 21:38 00:15 RBC 3.49 L Hgb 11.1 L Hct 32.1 L Urine Ketones 20 H Urine Blood SMALL H Ur Leukocyte Esterase SMALL H Discharge - Discharge Clinical Impression: Lower abdominal pain, Post-operative pain Condition: Stable Disposition: HOME, SELF-CARE Additional Instructions: The ultrasound, workup, and exam do not indicate any concerning abnormalities at this time. I spoke with Dr. Alex benson, they will be contacting you in close follow- up to be re-checked in the office. Do not have sexual intercourse until cleared to do so by [facility], doing so may result in severe injury or even . Return to the emergency department for any concerning symptoms including bleeding, vomiting, fever 100.4 or greater, severe pain, or any other concerning symptoms.
[2018-02-11 00:23] LABS: ABSOLUTE BASOPHILS # (AUTO) 0.1 10^3/uL (0.0-0.2); ABSOLUTE LYMPHOCYTES (AUTO) 1.9 10^3/uL (0.5-4.7); ABSOLUTE MONOCYTES (AUTO) 0.7 10^3/uL (0.1-1.4); ABSOLUTE NEUT (AUTO) 6.7 10^3/uL (1.7-8.2); BASOPHILS % (AUTO) 0.5 % (0-2); EOSINOPHILS % (AUTO) 0.4 % (0-6); HEMATOCRIT 32.1 % (36.0-47.0); HEMOGLOBIN 11.1 g/dL (12.0-15.5); LYMPHOCYTES % (AUTO) 20.3 % (13-45); MEAN CORPUSCULAR HEMOGLOBIN 31.8 pg (27.0-33.4); MEAN CORPUSCULAR HGB CONC 34.6 g/dL (32.0-36.0); MEAN CORPUSCULAR VOLUME 92 fl (80-97); MONOCYTES % (AUTO) 7.6 % (3-13); PLATELET COUNT 312 10^3/uL (150-450); RED BLOOD COUNT 3.49 10^6/uL (3.72-5.28); RED CELL DISTRIBUTION WIDTH 13.2 % (11.5-14.0); SEGMENTED NEUTROPHILS % (AUTO) 71.2 % (42-78); TOTAL CELLS COUNTED % (AUTO) 100 %; WHITE BLOOD COUNT 9.5 10^3/uL (4.0-10.5)
--- NOTE | 2018-02-11 00:30 | RADIOLOGY REPORT (SQ) ---
CLINICAL DATA: 27-year-old female status post hysterectomy two weeks ago, now with pain. TECHNICAL DATA: Transabdominal imaging of the pelvis was performed on 02/10/2018 at 10:55 PM. FINDINGS: This study is compared to a prior pelvic ultrasound performed on 09/01/[address] abdomen and pelvis performed on 08/12/2017. The uterus is surgically absent. The cervix is not identified. The right ovary measures 3.6 x 3.0 x 2.4 cm. The right ovary is grossly normal in size, shape and echogenicity. Doppler imaging reveals faint color Doppler signal within the right ovary. The left ovary is not visualized on this examination. There is no free fluid in the pelvis. The bladder is incompletely distended on this examination. IMPRESSION: 1. Status post hysterectomy. 2. Nonvisualization of the left ovary. 3. Grossly normal sonographic evaluation of the right ovary. 4. No definite adnexal mass lesion or free fluid identified.
[2018-02-11] MEDS ORDERED: NORMAL SALINE 1000 ML 1,000 ML IV ONE (01:11)
[2018-02-11 01:57] LABS: ALANINE AMINOTRANSFERASE 17 U/L (9-52); ALBUMIN 3.9 g/dL (3.5-5.0); ALKALINE PHOSPHATASE 91 U/L (38-126); ANION GAP 12 (5-19); ASPARTATE AMINO TRANSFERASE 18 U/L (14-36); BILIRUBIN,DIRECT 0.3 mg/dL (0.0-0.4); BILIRUBIN,TOTAL 0.6 mg/dL (0.2-1.3); BLOOD UREA NITROGEN 7 mg/dL (7-20); CALCIUM 8.9 mg/dL (8.4-10.2); CARBON DIOXIDE 23 mmol/L (22-30); CHLORIDE 106 mmol/L (98-107); GLUCOSE 99 mg/dL (75-110); TOTAL PROTEIN 7.1 g/dL (6.3-8.2)
[2018-02-11] MEDS ORDERED: HYDROCODONE/ACETAMINOPHEN 5-325 MG (6 TAB/ER DISP) PO PRN (02:26)
[2018-02-11 02:38] VITALS: BP 120/68
== END 2018-02-11 02:50 | disposition home or self-care (01) ==
LOC: ER 18:07
DX: G89.18 Other acute postprocedural pain (principal); R10.30 Lower abdominal pain, unspecified; Z90.710 Acquired absence of both cervix and uterus; Z90.49 Acquired absence of other specified parts of digestive tract
CPT/HCPCS: 99284; 96360; 36415; 85025; 80053; 81001; 76856; S0119; J7030

== ENCOUNTER 2018-02-11 16:35 | Inpatient (IN) | payer BC ==
[2018-02-11] MEDS ORDERED: NORMAL SALINE 1000 ML 1,000 ML IV ONE ×2 (17:40→21:08)
--- NOTE | 2018-02-11 17:42 | ER Document Report ---
ED Medical Screen (RME) - General Chief Complaint: Abdominal Pain Stated Complaint: FEVER Time Seen by Provider: 02/11/18 17:35 Notes: 27 years old female presents today with abdominal pain over the lower abdomen, for the last few days. She postop hysterectomy she was told not to have sex for 4-6 weeks, but 2 weeks after surgery had sexual intercourse. Post intercourse pain developed. Today she was seen by her nut feeder. And referred back here. She had a fever and lower abdominal pain. Abdomen is tender over the lower abdomen. TRAVEL OUTSIDE OF THE [place] IN LAST 30 DAYS: No - Related Data Allergies/Adverse Reactions: No Known Allergies Allergy (Verified 02/11/18 16:36) Past Medical History - Social History Chew tobacco use (# tins/day): No Frequency of alcohol use: None Drug Abuse: None - Past Medical History Cardiac Medical History: Denies: Hx Coronary Artery Disease, Hx Heart Attack, Hx Hypertension Pulmonary Medical History: Denies: Hx Asthma, Hx Bronchitis, Hx COPD, Hx Pneumonia Neurological Medical History: Denies: Hx Cerebrovascular Accident Renal/ Medical History: Denies: Hx Peritoneal Dialysis Musculoskeltal Medical History: Denies Hx Arthritis Past Surgical History: Reports: Hx Cholecystectomy, Hx Hysterectomy, Hx Tubal Ligation. Denies: Hx Pacemaker - Immunizations Hx Diphtheria, Pertussis, Tetanus Vaccination: Yes History of Influenza Vaccine for 12/2016 - 05/2017 Season: No Physical Exam - Vital signs Vitals: Temp Pulse Resp BP Pulse Ox 99.3 F 133 H 16 119/76 100 02/11/18 16:40 02/11/18 16:40 02/11/18 16:40 02/11/18 16:40 02/11/18 16:40 Course - Vital Signs Vital signs: Temp Pulse Resp BP Pulse Ox 99.3 F 133 H 16 119/76 100 02/11/18 16:40 02/11/18 16:40 02/11/18 16:40 02/11/18 16:40 02/11/18 16:40
[2018-02-11 18:41] LABS: APPEARANCE,URINE SLIGHTLY-CLOUDY; BILIRUBIN,URINE NEGATIVE (NEGATIVE); COLOR,URINE STRAW; GLUCOSE, URINE NEGATIVE (NEGATIVE); KETONES,URINE TRACE mg/dL (NEGATIVE); LEUKOCYTE ESTERASE,URINE SMALL (NEGATIVE); NITRITE,URINE NEGATIVE (NEGATIVE); PROTEIN,URINE NEGATIVE (NEGATIVE); UROBILINOGEN,URINE NEGATIVE mg/dL (<2.0)
[2018-02-11 18:49] LABS: ABSOLUTE LYMPHOCYTES (AUTO) 1.5 10^3/uL (0.5-4.7); ABSOLUTE MONOCYTES (AUTO) 0.7 10^3/uL (0.1-1.4); ABSOLUTE NEUT (AUTO) 10.5 10^3/uL (1.7-8.2); BASOPHILS % (AUTO) 0.3 % (0-2); EOSINOPHILS % (AUTO) 0.1 % (0-6); HEMATOCRIT 32.2 % (36.0-47.0); HEMOGLOBIN 11.1 g/dL (12.0-15.5); LYMPHOCYTES % (AUTO) 11.6 % (13-45); MEAN CORPUSCULAR HEMOGLOBIN 31.6 pg (27.0-33.4); MEAN CORPUSCULAR HGB CONC 34.3 g/dL (32.0-36.0); MEAN CORPUSCULAR VOLUME 92 fl (80-97); MONOCYTES % (AUTO) 5.7 % (3-13); PLATELET COUNT 337 10^3/uL (150-450); SEGMENTED NEUTROPHILS % (AUTO) 82.3 % (42-78); TOTAL CELLS COUNTED % (AUTO) 100 %; WHITE BLOOD COUNT 12.8 10^3/uL (4.0-10.5)
[2018-02-11 19:15] LABS: ALANINE AMINOTRANSFERASE 18 U/L (9-52); ALBUMIN 4.8 g/dL (3.5-5.0); ALKALINE PHOSPHATASE 104 U/L (38-126); ANION GAP 14 (5-19); ASPARTATE AMINO TRANSFERASE 18 U/L (14-36); BILIRUBIN,DIRECT 0.3 mg/dL (0.0-0.4); BILIRUBIN,TOTAL 0.4 mg/dL (0.2-1.3); BLOOD UREA NITROGEN 8 mg/dL (7-20); CALCIUM 10.1 mg/dL (8.4-10.2); CARBON DIOXIDE 26 mmol/L (22-30); CHLORIDE 102 mmol/L (98-107); GLUCOSE 119 mg/dL (75-110); POTASSIUM 4.5 mmol/L (3.6-5.0); SODIUM 142.4 mmol/L (137-145); TOTAL PROTEIN 8.5 g/dL (6.3-8.2)
[2018-02-11] MEDS ORDERED: ACETAMINOPHEN 325 MG TABLET PO ONE (19:22)
[2018-02-11] MEDS ORDERED: MORPHINE SULFATE 10 MG/ML INJ IV ONE (19:22)
--- NOTE | 2018-02-11 19:39 | RADIOLOGY REPORT (SQ) ---
EXAM DESCRIPTION: CT ABD/PELVIS WITH IV ONLY COMPLETED DATE/TIME: 02/11/2018 7:24 pm REASON FOR STUDY: Postoperative abdominal pain COMPARISON: CT renal stone 09/01/2017 TECHNIQUE: CT scan of the abdomen and pelvis performed using helical scanning technique with dynamic intravenous contrast injection. No oral contrast. Images reviewed with lung, soft tissue, and bone windows. Reconstructed coronal and sagittal MPR images reviewed. Delayed images for evaluation of the urinary system also acquired. All images stored on PACS. All CT scanners at this facility use dose modulation, iterative reconstruction, and/or weight based d osing when appropriate to reduce radiation dose to as low as reasonably achievable (ALARA). [facility]: Dose Right [facility]: CareDose [facility]: Dose Right [facility]: Teradose 4D [facility]: Zoodles CONTRAST TYPE AND DOSE: contrast/concentration: Isovue 350.00 mg/ml; Total Contrast Delivered: 100.0 ml; Total Saline Delivered: 62.7 ml RENAL FUNCTION: None required. The patient is less than 50 years old. RADIATION DOSE: CT Rad equipment meets quality standard of care and radiation dose reduction techniq ues were employed. CTDIvol: 14.7 - 19.2 mGy. DLP: 1908 mGy-cm.. LIMITATIONS: None. FINDINGS: LOWER CHEST: No significant findings. No nodules or infiltrates. LIVER: The liver is uniformly hypoattenuating. No masses. SPLEEN: Normal size. No focal lesions. PANCREAS: No masses. No significant calcifications. No adjacent inflammation or peripancreatic fluid collections. Pancreatic duct not dilated. GALLBLADDER: Surgically absent. ADRENAL GLANDS: No significant masses or asymmetry. RIGHT KIDNEY AND URETER: No solid masses. No significant calcifications. No hydronephrosis or hyd roureter. LEFT KIDNEY AND URETER: No solid masses. No significant calcifications. No hydronephrosis or hydr oureter. AORTA AND VESSELS: No aneurysm. No dissection. Renal arteries, SMA, celiac without stenosis. RETROPERITONEUM: No retroperitoneal adenopathy, hemorrhage or masses. BOWEL AND PERITONEAL CAVITY: No masses or inflammatory changes. No free fluid or peritoneal masses. APPENDIX: Normal. PELVIS: There is a 51 x 37 mm fluid collection in the right side of the pelvis on image 73 series 3. The uterus is absent. The urinary bladder is normal. There is some ill-defined fluid just to the l eft of the midline on image 76 that may connect with the larger fluid collection described earlier. ABDOMINAL WALL: No masses. No hernias. BONES: No significant or acute findings. OTHER: No other significant finding. IMPRESSION: 1. Fatty infiltration of the liver. 2. There is fluid in the pelvis. Cannot exclude abscess or seroma. TECHNICAL DOCUMENTATION: JOB ID: [id number] Quality ID # [id number]: Final reports with documentation of one or more dose reduction techniques (e.g., Au tomated exposure control, adjustment of the mA and/or kV according to patient size, use of iterative reconstruction technique) 2010 [employer]- All Rights Reserved Reading location - IP/workstation name: [email or web address]
--- NOTE | 2018-02-11 19:46 | ER Document Report ---
ED GI/ - General Chief Complaint: Abdominal Pain Stated Complaint: FEVER Time Seen by Provider: 02/11/18 17:35 Mode of Arrival: Ambulatory Information source: Patient TRAVEL OUTSIDE OF THE [place] IN LAST 30 DAYS: No - HPI Patient complains to provider of: Pelvic pain Onset: Other - 3 Days Timing/Duration: Gradual Quality of pain: Achy, Fullness, Pressure, Sharp Severity at maximum: Moderate Severity in ED: Moderate Pain Level: 3 Location: Pelvis Vaginal bleeding (Compared to normal period): None Notes: 02/11/18 20:01 Patient is a 27-year-old female presenting to the emergency room today complaining of pelvic pain this been going on for the past few days, she does report a history of a hysterectomy that was performed on January 29, 2018 secondary to frequent and heavy menstruation, on Friday just 3 days prior to today patient and her had intercourse, even though she was told to wait at least 6 weeks after her surgery to resume intercourse, the very next day she woke up and had severe pelvic pain, she was seen in this department yesterday had a relatively unremarkable evaluation with normal labs and pelvic ultrasound , she followed up with her TECH WRITER today who did a pelvic exam which she reports was normal, however shortly after that she noted her heart rate to be elevated so she went to see her commercial litigation attorney and in their office was noted to have a fever, therefore she presents back to the emergency room today for further evaluation and treatment - Related Data Allergies/Adverse Reactions: No Known Allergies Allergy (Verified 02/11/18 16:36) Past Medical History - General Information source: Patient - Social History Smoking Status: Never Smoker Chew tobacco use (# tins/day): No Frequency of alcohol use: None Drug Abuse: None Family History: Reviewed & Not Pertinent Patient has suicidal ideation: No Patient has homicidal ideation: No - Past Medical History Cardiac Medical History: Denies: Hx Coronary Artery Disease, Hx Heart Attack, Hx Hypertension Pulmonary Medical History: Denies: Hx Asthma, Hx Bronchitis, Hx COPD, Hx Pneumonia Neurological Medical History: Denies: Hx Cerebrovascular Accident Renal/ Medical History: Denies: Hx Peritoneal Dialysis Musculoskeletal Medical History: Denies Hx Arthritis Past Surgical History: Reports: Hx Cholecystectomy, Hx Hysterectomy, Hx Tubal Ligation. Denies: Hx Pacemaker - Immunizations Hx Diphtheria, Pertussis, Tetanus Vaccination: Yes Review of Systems - Review of Systems Constitutional: Fever EENT: No symptoms reported Cardiovascular: No symptoms reported Respiratory: No symptoms reported Gastrointestinal: No symptoms reported Genitourinary: See HPI Female Genitourinary: No symptoms reported Musculoskeletal: No symptoms reported Skin: No symptoms reported Hematologic/Lymphatic: No symptoms reported Neurological/Psychological: No symptoms reported -: Yes All other systems reviewed and negative Physical Exam - Vital signs Vitals: Temp Pulse Resp BP Pulse Ox 99.3 F 133 H 16 119/76 100 02/11/18 16:40 02/11/18 16:40 02/11/18 16:40 02/11/18 16:40 02/11/18 16:40 Interpretation: Normal - General General appearance: Appears well, Alert - HEENT Head: Normocephalic, Atraumatic Eyes: Normal Pupils: PERRL - Respiratory Respiratory status: No respiratory distress Chest status: Nontender Breath sounds: Normal Chest palpation: Normal - Cardiovascular Rhythm: Regular Heart sounds: Normal auscultation Murmur: No - Abdominal Inspection: Normal Distension: No distension Bowel sounds: Normal Tenderness: Tender - Suprapubic/pelvic tenderness Organomegaly: No organomegaly - Back Back: Normal, Nontender - Extremities General upper extremity: Normal inspection, Nontender, Normal color, Normal ROM , Normal temperature General lower extremity: Normal inspection, Nontender, Normal color, Normal ROM , Normal temperature, Normal weight bearing. No: Patrice's sign - Neurological Neuro grossly intact: Yes Cognition: Normal Orientation: AAOx4 [place] Coma Scale Eye Opening: Spontaneous [place] Coma Scale Verbal: Oriented [place] Coma Scale Motor: Obeys Commands Hannah Coma Scale Total: 15 Speech: Normal Motor strength normal: LUE, RUE, LLE, RLE Sensory: Normal - Psychological Associated symptoms: Normal affect, Normal mood - Skin Skin Temperature: Warm Skin Moisture: Dry Skin Color: Normal Course - Re-evaluation Re-evalutation: 02/11/18 19:45 She was discussed with on-call TECH WRITER who will come to the emergency room to evaluate, recommends I start patient on Unasyn and Flagyl 02/11/18 20:03 CT scan consistent with likely pelvic abscess versus seroma, however patient has a white count of 12.8, she is tachycardic and febrile, therefore more likely this is a pelvic abscess, therefore antibiotics were started and patient will be admitted to TECH WRITER service for further evaluation and treatment - Vital Signs Vital signs: Temp Pulse Resp BP Pulse Ox 99.3 F 133 H 16 119/76 100 02/11/18 16:40 02/11/18 16:40 02/11/18 16:40 02/11/18 16:40 02/11/18 16:40 - Laboratory Result Diagrams: 02/11/18 18:25 02/11/18 18:25 Laboratory results interpreted by me: 02/11/18 02/11/18 02/11/18 18:03 18:25 18:25 WBC 12.8 H RBC 3.50 L Hgb 11.1 L Hct 32.2 L Seg Neutrophils % 82.3 H Lymphocytes % 11.6 L Absolute Neutrophils 10.5 H Glucose 119 H Total Protein 8.5 H Urine Ketones TRACE H Urine Blood MODERATE H Ur Leukocyte Esterase SMALL H - Diagnostic Test Radiology reviewed: Image reviewed, Reports reviewed Discharge - Discharge Clinical Impression: Pelvic abscess, Postoperative infection Condition: Fair Disposition: ADMITTED INPATIENT Admitting Provider: [facility] Admitted: Medical Floor
[2018-02-11] MEDS ORDERED: AMPICILLIN SOD/SULBACTAM 3 GM VIAL IV ONE (20:04)
[2018-02-11] MEDS ORDERED: METRONIDAZOLE RTU 500 MG/NS 100 ML IV ONE (20:04)
[2018-02-11] MEDS ORDERED: PIPERACILLIN/TAZOBACTAM 3.375 GM VIAL IV ONE (20:09)
[2018-02-11] MEDS ORDERED: ACETAMINOPHEN 325 MG TABLET PO PRN (20:18)
[2018-02-11] MEDS ORDERED: HYDROMORPHONE HCL INJ/PF 2 MG/ML AMPULE IV PRN (20:18)
[2018-02-11] MEDS ORDERED: PROMETHAZINE HCL INJ 25 MG/1 ML VIAL IV PRN (20:18)
[2018-02-11] MEDS ORDERED: OXYCODONE-ACETAMINOPHEN 5-325 MG TABLET PO PRN ×2 (20:18)
[2018-02-11] MEDS ORDERED: SIMETHICONE 80 MG TAB.CHEW PO PRN (20:18)
--- NOTE | 2018-02-11 20:18 | PDOC H&P ---
History of Present Illness Admission Date/PCP: 02/11/18 20:05 Patient complains of: Pain in pelvis History of Present Illness: MIRIAM LANDEROS is a 27 year old female She has had a recent hysterectomy. She and had sex recently. She now presents with a pelvic abcess. Past Medical History LMP: hyst Cardiac Medical History: Denies: Coronary Artery Disease, Myocardial Infarction, Hypertension Pulmonary Medical History: Denies: Asthma, Bronchitis, Chronic Obstructive Pulmonary Disease (COPD), Pneumonia Neurological Medical History: Musculoskeltal Medical History: Denies: Arthritis Past Surgical History Past Surgical History: Reports: Cholecystectomy, Hysterectomy, Tubal Ligation Denies: Pacemaker Social History Smoking Status: Never Smoker Family History Family History: Reviewed & Not Pertinent Parental Family History Reviewed: Yes Children Family History Reviewed: Yes Sibling(s) Family History Reviewed.: Yes Medication/Allergy Home Medications: Elderberry Fruit/Honey [Little Remedies Cough-Immune] 1 dose PO DAILY 01/26/18 Metoprolol Tartrate [Lopressor 25 mg Tablet] 1 tab PO DAILY 01/26/18 Ibuprofen [Motrin 800 mg Tablet] 800 mg PO Q8HP PRN #60 tablet 01/30/18 Oxycodone HCl/Acetaminophen [Percocet 5-325 mg Tablet] 1 tab PO Q6HP PRN #30 tablet 01/30/18 Allergies/Adverse Reactions: No Known Allergies Allergy (Verified 02/11/18 16:36) Physical Exam - Physical Exam Vital Signs: Temp Pulse Resp BP Pulse Ox 99.3 F 133 H 16 119/76 100 02/11/18 16:40 02/11/18 16:40 02/11/18 16:40 02/11/18 16:40 02/11/18 16:40 General appearance: PRESENT: mild distress, obese Head exam: PRESENT: atraumatic, normocephalic Respiratory exam: PRESENT: symmetrical, unlabored Cardiovascular exam: PRESENT: RRR GI/Abdominal exam: PRESENT: tenderness Rectal exam: PRESENT: deferred Musculoskeletal exam: PRESENT: ambulatory Neurological exam: PRESENT: alert, awake, oriented to person, oriented to place , oriented to time, oriented to situation, CN II-XII grossly intact. ABSENT: motor sensory deficit Psychiatric exam: PRESENT: appropriate affect, normal mood. ABSENT: homicidal ideation, suicidal ideation - Gynecological Exam Labia: other - Exam in office earlier today showed an intact cuff Result Impressions: Abdomen/Pelvis CT 02/11/18 17:40 IMPRESSION: 1. Fatty infiltration of the liver. 2. There is fluid in the pelvis. Cannot exclude abscess or seroma. Assessment & Plan - Diagnosis (1) Pelvic abscess Is this a current diagnosis for this admission?: Yes - Time Time Spent: 30 to 50 Minutes Anticipated discharge: Home Within: within 72 hours - Plan Summary Plan Summary: Will begin IV abx with Zosyn and flagyl.
[2018-02-11] MEDS ORDERED: IBUPROFEN 600 MG TABLET PO ONE (21:08)
[2018-02-11] MEDS: METRONIDAZOLE 500 MG/NS RTU 500 MG/100 ML RTUPB IV SCH (23:21)
[2018-02-11] MEDS: IBUPROFEN 800 MG TABLET PO SCH (23:27)
[2018-02-12] MEDS ORDERED: PIPERACILLIN/TAZOBACTAM 3.375 GM VIAL IV SCH
[2018-02-12] MEDS: RINGERS SOLUTION,LACTATED 1,000 ML IV PRN ×2 (04:04→17:02)
[2018-02-12] MEDS ORDERED: PIPERACILLIN/TAZOBACTAM 3.375 GM VIAL IV ONE (05:38)
[2018-02-12] MEDS: IBUPROFEN 800 MG TABLET PO SCH ×3 (06:24→17:03)
[2018-02-12] MEDS: PIPERACILLIN SODIUM/TAZOBACTAM 3.375 GM in NORMAL SALINE 100 ML IV SCH ×3 (06:24→17:02)
[2018-02-12 06:50] LABS: HEMATOCRIT 26.6 % (36.0-47.0); MEAN CORPUSCULAR HEMOGLOBIN 31.5 pg (27.0-33.4); MEAN CORPUSCULAR HGB CONC 33.9 g/dL (32.0-36.0); MEAN CORPUSCULAR VOLUME 93 fl (80-97); PLATELET COUNT 248 10^3/uL (150-450); RED BLOOD COUNT 2.87 10^6/uL (3.72-5.28); RED CELL DISTRIBUTION WIDTH 13.2 % (11.5-14.0); WHITE BLOOD COUNT 11.1 10^3/uL (4.0-10.5)
[2018-02-12] MEDS: DOCUSATE SODIUM 100 MG CAPSULE PO SCH ×2 (10:13→17:02)
[2018-02-12] MEDS: METOPROLOL TARTRATE 25 MG TABLET PO SCH (10:13)
[2018-02-12] MEDS: METRONIDAZOLE 500 MG/NS RTU 500 MG/100 ML RTUPB IV SCH ×2 (10:15→21:19)
--- NOTE | 2018-02-12 13:27 | PDOC PROGRESS REPORT ---
Subjective Progress Note for:: 02/12/18 Subjective:: She states that she is no longer painful; scant amount of vaginal discharge. Patient denies chest pain, shortness of breath, fever/chills or vomiting. However, she is complaining of nausea. She is ambulating voiding without difficulty. Reason For Visit: ABSCESS OF POSTOPERATIVE INFECTION Physical Exam - Physical Exam Vital Signs: Temp Pulse Resp BP Pulse Ox 97.7 F 101 H 20 116/72 100 02/12/18 11:26 02/12/18 11:26 02/12/18 11:26 02/12/18 11:26 02/12/18 11:26 Intake & Output 02/11/18 02/12/18 02/13/18 06:59 06:59 06:59 Intake Total 800 1798 Balance 800 1798 Weight 102 kg General appearance: PRESENT: no acute distress Respiratory exam: PRESENT: clear to auscultation mayur Cardiovascular exam: PRESENT: RRR GI/Abdominal exam: PRESENT: normal bowel sounds, soft - Nontender Extremities exam: ABSENT: calf tenderness, clubbing, full ROM, joint swelling, pedal edema, tenderness, +1 edema, +2 edema, other - Gynecological Exam Labia: other - Exam in office earlier today showed an intact cuff Result Laboratory Results: 02/12/18 06:14 02/12/18 06:14 WBC 11.1 H RBC 2.87 L Hgb 9.0 L D Hct 26.6 L MCV 93 MCH 31.5 MCHC 33.9 RDW 13.2 Plt Count 248 Impressions: Abdomen/Pelvis CT 02/11/18 17:40 IMPRESSION: 1. Fatty infiltration of the liver. 2. There is fluid in the pelvis. Cannot exclude abscess or seroma. Assessment & Plan - Diagnosis (1) Pelvic abscess Is this a current diagnosis for this admission?: Yes (2) Postoperative infection Qualifiers: Encounter type: subsequent encounter Is this a current diagnosis for this admission?: Yes (3) Lower abdominal pain Is this a current diagnosis for this admission?: Yes (4) Post-operative pain Is this a current diagnosis for this admission?: Yes - Time Time Spent with patient: Less than 15 minutes - Plan Summary Plan Summary: Plan: 1. Continue antibiotic regimen 2. Nausea--we will give Phenergan which will also help her sleep
[2018-02-12] MEDS ORDERED: PROMETHAZINE HCL INJ 25 MG/1 ML VIAL IV PRN (13:30)
[2018-02-13] MEDS: IBUPROFEN 800 MG TABLET PO SCH ×4 (00:01→17:53)
[2018-02-13] MEDS: RINGERS SOLUTION,LACTATED 1,000 ML IV PRN (05:43)
[2018-02-13] MEDS: PIPERACILLIN SODIUM/TAZOBACTAM 3.375 GM in NORMAL SALINE 100 ML IV SCH ×5 (05:43→17:53)
[2018-02-13 06:57] LABS: HEMOGLOBIN 8.3 g/dL (12.0-15.5); MEAN CORPUSCULAR HEMOGLOBIN 32.2 pg (27.0-33.4); MEAN CORPUSCULAR HGB CONC 34.7 g/dL (32.0-36.0); MEAN CORPUSCULAR VOLUME 93 fl (80-97); PLATELET COUNT 236 10^3/uL (150-450); RED BLOOD COUNT 2.59 10^6/uL (3.72-5.28); RED CELL DISTRIBUTION WIDTH 13.1 % (11.5-14.0); WHITE BLOOD COUNT 7.5 10^3/uL (4.0-10.5)
[2018-02-13] MEDS: METRONIDAZOLE 500 MG/NS RTU 500 MG/100 ML RTUPB IV SCH (09:36)
[2018-02-13] MEDS: METOPROLOL TARTRATE 25 MG TABLET PO SCH (09:36)
[2018-02-13] MEDS: DOCUSATE SODIUM 100 MG CAPSULE PO SCH ×2 (09:37→17:57)
--- NOTE | 2018-02-13 20:39 | PDOC DISCHARGE SUMMARY ---
General - Admit/Disc Date/PCP Admission Date/Primary Care Provider: 02/11/18 20:05 Discharge Date: 02/13/18 - Discharge Diagnosis (1) Pelvic abscess Is this a current diagnosis for this admission?: Yes (2) Postoperative infection Is this a current diagnosis for this admission?: Yes (3) Lower abdominal pain Is this a current diagnosis for this admission?: Yes (4) Post-operative pain Is this a current diagnosis for this admission?: Yes - Additional Information Home Medications: Metoprolol Succinate [Toprol Xl 25 mg Tab.sr] 25 mg PO DAILY 02/11/18 History of Present Illness History of Present Illness: MIRIAM LANDEROS is a 27 year old female Hospital Course Hospital Course: admitted with suspected pelvic abscess. received iv abx and has responded well. Physical Exam - Physical Exam Vital Signs: Temp Pulse Resp BP Pulse Ox 98.2 F 104 H 16 121/73 100 02/13/18 20:11 02/13/18 20:11 02/13/18 20:11 02/13/18 20:11 02/13/18 20:11 Intake & Output 02/12/18 02/13/18 02/14/18 06:59 06:59 06:59 Intake Total 800 4325 840 Balance 800 4325 840 Weight 102 kg General appearance: PRESENT: no acute distress, cooperative - incisions c/d/ intact and healing well - Gynecological Exam Labia: other - Exam in office earlier today showed an intact cuff Result Laboratory Results: 02/13/18 06:23 02/13/18 06:23 WBC 7.5 RBC 2.59 L Hgb 8.3 L Hct 24.0 L MCV 93 MCH 32.2 MCHC 34.7 RDW 13.1 Plt Count 236 Impressions: Abdomen/Pelvis CT 02/11/18 17:40 IMPRESSION: 1. Fatty infiltration of the liver. 2. There is fluid in the pelvis. Cannot exclude abscess or seroma. Plan Discharge Plan: discharge with Ampicillin. She is to emergency crew supervisor flagyl script that was rx'd to her on Friday already. Diflcuan for yeast to take as needed. instructed on strict precautions for pelvic rest Time Spent: Greater than 30 Minutes
[2018-02-13 20:52] VITALS: BP 110/64
== END 2018-02-13 21:15 | disposition home or self-care (01) | DRG 863 ==
LOC: ER 16:35 → EH 20:05 → 2N 22:40
PROVIDERS: ADMIT Obstetrics & Gynecology; ATTEND Obstetrics & Gynecology
DX: T81.43XA Infection following a procedure, organ and space surgical site, initial encounter (principal); N73.9 Female pelvic inflammatory disease, unspecified; R00.0 Tachycardia, unspecified; Z90.710 Acquired absence of both cervix and uterus
CPT/HCPCS: 36415; 74177; 80053; 81001; 85025; 85027; 87040; 94799; 96361; 96374; 99285; J2270; J2543; J2550; J7030; J7120

== ENCOUNTER 2019-03-15 16:26 | Emergency (ER) | payer OTHER ==
--- NOTE | 2019-03-15 18:30 | ER Document Report ---
HPI - HPI Patient complains to provider of: cough sore throat Time Seen by Provider: 03/15/19 18:20 Onset: Other - since Pain Level: 1 Context: 28-year-old female presents emergency department cough congestion nasal congestion sore throat since last . Denies fever vomiting diarrhea. Denies pain with void. Reports she is used nasal saline without relief of symptoms. Associated Symptoms: Sore throat Exacerbated by: Denies Relieved by: Denies Similar symptoms previously: No Recently seen / treated by doctor: No - EENT EENT: REPORTS: Sore Throat - RESPIRATORY Respiratory: REPORTS: Coughing - REPRODUCTIVE Reproductive: DENIES: : Past Medical History - General Information source: Patient Last Menstrual Period: Hysterectomy - Social History Smoking Status: Never Smoker Frequency of alcohol use: None Drug Abuse: None Family History: Reviewed & Not Pertinent Patient has suicidal ideation: No Patient has homicidal ideation: No - Past Medical History Cardiac Medical History: Reports: Other - Fast heart rate Neurological Medical History: Denies: Hx Cerebrovascular Accident Renal/ Medical History: Denies: Hx Peritoneal Dialysis Past Surgical History: Reports: Hx Cholecystectomy, Hx Hysterectomy, Hx Tubal Ligation - Immunizations Hx Diphtheria, Pertussis, Tetanus Vaccination: Yes Vertical Provider Document - CONSTITUTIONAL Agree With Documented VS: Yes Exam Limitations: No Limitations General Appearance: WD/WN, No Apparent Distress - INFECTION CONTROL TRAVEL OUTSIDE OF THE [place] IN LAST 30 DAYS: No - HEENT HEENT: Atraumatic, Normal ENT Exam, Normocephalic, Pharyngeal Erythema - Good airway clear voice no tonsillar exudate opens mouth wide no trismus. negative: Conjuctival Injection, Tympanic Membrane Red - NECK Neck: Normal Inspection, Supple - RESPIRATORY Respiratory: Breath Sounds Normal, No Respiratory Distress. negative: Rhonchi, Wheezing - CARDIOVASCULAR Cardiovascular: Regular Rate, Regular Rhythm - GI/ABDOMEN Gastrointestinal: Abdomen Soft, Abdomen Non-Tender - BACK Back: negative: CVA Tenderness-Right, CVA Tenderness-Left - MUSCULOSKELETAL/EXTREMETIES Musculoskeletal/Extremeties: HENRIK WILEY - NEURO Level of Consciousness: Awake, Alert, Appropriate Motor/Sensory: No Motor Deficit - DERM Integumentary: Warm, Dry Course - Re-evaluation Re-evalutation: 03/15/19 18:26 Patient presents emergency department with complaints of cough congestion sore throat since last . Denies fever vomiting diarrhea. Strep and chest x- ray ordered. 03/15/19 19:58 Strep negative. Pneumonia noted on x-ray. Patient was instructed on amoxicillin Zithromax and Flonase. Instructed to monitor temperature. Follow- up with your primary care provider within 1 week for recheck. She was also to return the emergency department for concerns. She verbalized understanding to all instructions. Chest X-Ray 03/15/19 18:24 IMPRESSION: Patchy consolidation in the left upper and lower lobe. No pleural effusion. - Vital Signs Vital signs: Temp Pulse Resp BP Pulse Ox 98.5 F 87 16 122/86 H 100 03/15/19 17:27 03/15/19 17:27 03/15/19 17:27 03/15/19 17:27 03/15/19 17:27 - Diagnostic Test Radiology reviewed: Image reviewed, Reports reviewed Discharge - Discharge Clinical Impression: Cough, Nasal congestion, Sore throat Pneumonia Qualifiers: Pneumonia type: due to unspecified organism Laterality: left Lung location: lower lobe of lung Qualified Code(s): J18.9 - Pneumonia, unspecified organism Condition: Stable Disposition: HOME, SELF-CARE Instructions: Amoxicillin ([facility]), Azithromycin ([facility]), Pneumonia ([facility]), Sore Throat ([facility]) Additional Instructions: *You have been evaluated for cold symptoms today, cough, sore throat, nasal congestion *Increase fluid intake as discussed *Monitor your temperature, take Tylenol as indicated *Follow up with a primary care provider within one week for recheck *Return to ED for worsening condition, changes, needs Prescriptions: Amoxicillin Trihydrate [Amoxil 500 mg Capsule] 1,000 mg PO TID #60 capsule Fluticasone Propionate [Flonase Nasal [place] 50 Mcg/[place] 16 gm] 1 spray NASL Q12 #1 inhaler Azithromycin [Zithromax 250 mg Tablet] 250 mg PO ASDIR PRN #6 tablet PRN Reason: Forms: Return to Work
--- NOTE | 2019-03-15 19:47 | RADIOLOGY REPORT (SQ) ---
EXAM DESCRIPTION: CHEST 2 VIEWS COMPLETED DATE/TIME: 03/15/2019 6:35 pm REASON FOR STUDY: cough COMPARISON: 04/25/2009 TECHNIQUE: Frontal and lateral radiographic views of the chest acquired. NUMBER OF VIEWS: Two view. LIMITATIONS: None. FINDINGS: LUNGS AND PLEURA: No pneumothorax. Patchy consolidation in the left upper and lower lobe. No pleural effusion. MEDIASTINUM AND HILAR STRUCTURES: Stable. HEART AND VASCULAR STRUCTURES: Stable. BONES: No acute findings. HARDWARE: None in the chest. OTHER: No other significant finding. IMPRESSION: Patchy consolidation in the left upper and lower lobe. No pleural effusion. TECHNICAL DOCUMENTATION: JOB ID: [id number] [id number] 2010 [employer]- All Rights Reserved Reading location - IP/workstation name: [email or web address]
[2019-03-15] MEDS ORDERED: AMOXICILLIN TRIHYDRATE 500 MG CAPSULE PO ONE (20:03)
[2019-03-15 20:11] VITALS: BP 111/77
== END 2019-03-15 20:23 | disposition home or self-care (01) ==
LOC: ER 16:26
DX: J18.9 Pneumonia, unspecified organism (principal); R05 Cough; R09.81 Nasal congestion; J02.9 Acute pharyngitis, unspecified
CPT/HCPCS: 71046; 87070; 87880; 99283

== ENCOUNTER 2019-04-20 11:15 | Emergency (ER) | payer OTHER ==
[2019-04-20 11:55] VITALS: BP 132/86
[2019-04-20] MEDS ORDERED: NAPROXEN 250 MG TABLET PO ONE (12:19)
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
== END 2019-04-20 14:11 | disposition home or self-care (01) ==
LOC: ER 11:15
DX: S00.93XA Contusion of unspecified part of head, initial encounter (principal); S80.12XA Contusion of left lower leg, initial encounter; S70.12XA Contusion of left thigh, initial encounter; R51 Headache; T14.8XXA Other injury of unspecified body region, initial encounter; S10.91XA Abrasion of unspecified part of neck, initial encounter; S50.312A Abrasion of left elbow, initial encounter; R55 Syncope and collapse; V43.52XA Car driver injured in collision with other type car in traffic accident, initial encounter
CPT/HCPCS: 70450; 72125; 99285

== ENCOUNTER 2020-02-09 13:34 | Emergency (ER) | payer MEDICAID, OTHER ==
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
--- NOTE | 2020-02-09 14:21 | RADIOLOGY REPORT (SQ) ---
EXAM DESCRIPTION: CHEST SINGLE VIEW IMAGES COMPLETED DATE/TIME: 02/09/2020 2:13 pm REASON FOR STUDY: Chest pain COMPARISON: 03/15/2019 EXAM PARAMETERS: NUMBER OF VIEWS: One view. TECHNIQUE: Single frontal radiographic view of the chest acquired. RADIATION DOSE: NA LIMITATIONS: None. FINDINGS: LUNGS AND PLEURA: No opacities, masses or pneumothorax. No pleural effusion. MEDIASTINUM AND HILAR STRUCTURES: No masses. Contour normal. HEART AND VASCULAR STRUCTURES: Heart normal in size. Normal vasculature. BONES: No acute findings. HARDWARE: None in the chest. OTHER: No other significant finding. IMPRESSION: NO ACUTE RADIOGRAPHIC FINDING IN THE CHEST. TECHNICAL DOCUMENTATION: JOB ID: [id number] 2010 [employer]- All Rights Reserved Reading location - IP/workstation name: [email or web address]
[2020-02-09 15:33] LABS: ABSOLUTE EOSINOPHILS # (AUTO) 0.1 10^3/uL (0.0-0.6); ABSOLUTE LYMPHOCYTES (AUTO) 2.3 10^3/uL (0.5-4.7); ABSOLUTE MONOCYTES (AUTO) 0.4 10^3/uL (0.1-1.4); ABSOLUTE NEUT (AUTO) 2.9 10^3/uL (1.7-8.2); BASOPHILS % (AUTO) 0.8 % (0-2); EOSINOPHILS % (AUTO) 1.5 % (0-6); HEMATOCRIT 37.7 % (36.0-47.0); HEMOGLOBIN 13.3 g/dL (12.0-15.5); LYMPHOCYTES % (AUTO) 39.9 % (13-45); MEAN CORPUSCULAR HEMOGLOBIN 33.8 pg (27.0-33.4); MEAN CORPUSCULAR HGB CONC 35.2 g/dL (32.0-36.0); MEAN CORPUSCULAR VOLUME 96 fl (80-97); MONOCYTES % (AUTO) 7.2 % (3-13); PLATELET COUNT 303 10^3/uL (150-450); RED BLOOD COUNT 3.93 10^6/uL (3.72-5.28); RED CELL DISTRIBUTION WIDTH 12.7 % (11.5-14.0); SEGMENTED NEUTROPHILS % (AUTO) 50.6 % (42-78); TOTAL CELLS COUNTED % (AUTO) 100 %; WHITE BLOOD COUNT 5.7 10^3/uL (4.0-10.5)
[2020-02-09 16:01] LABS: ALBUMIN 4.7 g/dL (3.5-5.0); ALKALINE PHOSPHATASE 77 U/L (38-126); ANION GAP 10 (5-19); ASPARTATE AMINO TRANSFERASE 34 U/L (14-36); BILIRUBIN,DIRECT 0.1 mg/dL (0.0-0.4); BILIRUBIN,TOTAL 0.3 mg/dL (0.2-1.3); BLOOD UREA NITROGEN 10 mg/dL (7-20); CALCIUM 10.4 mg/dL (8.4-10.2); CARBON DIOXIDE 28 mmol/L (22-30); CHLORIDE 101 mmol/L (98-107); GLUCOSE 98 mg/dL (75-110); POTASSIUM 4.7 mmol/L (3.6-5.0); TOTAL PROTEIN 8.4 g/dL (6.3-8.2)
[2020-02-09 16:13] LABS: NT PRO BNP 23 pg/mL (<125)
[2020-02-09 16:14] LABS: TROPONIN I < 0.012 ng/mL
--- NOTE | 2020-02-09 17:28 | ER Document Report ---
ED General - General Chief Complaint: Chest Pain Stated Complaint: CHEST PAIN Time Seen by Provider: 02/09/20 13:49 [facility] [[facility]] - Follow up in 1 week Mode of Arrival: Ambulatory TRAVEL OUTSIDE OF THE [place] IN LAST 30 DAYS: No - HPI Notes: 29-year-old female to the emergency department with complaints of anterior midsternal chest pain that began on Friday and has been constant. She states is not really pain but more of a heaviness. She states it does not increase with big deep breath but it does seem to get a little bit better when she lays down. She denies any fevers or chills, cough, contact with anyone with COVID-19, sore throat, loss of taste, shortness of breath, diaphoresis, arm pain, back pain, worsening with eating, recent travel, or leg swelling. She does not have diabetes, hypertension, hyperlipidemia. She is never had a blood clot in her leg. She does not take control. There is a family history of heart disease. Her dad had a heart attack in his mid 50s. She also admits that she is really been struggling with the pandemic lately. She states that she is a lways worrying. She has noticed that it affects her ability to get up and do things. She states that she typically works late afternoon to the early evening. She states that before that she really has a hard time getting out of bed and doing things. She denies any SI, HI, hallucinations. She does have a history of sinus tachycardia and has seen Dr. Alcantar in the past for cardiology. She states that she takes metoprolol for this. She states that she had episodes of racing heart about a year ago and had a Holter monitor and nothing specific could ever be found. However, her symptoms got better after she started to take metoprolol. She denies that her chest symptoms today are similar to when she was having palpitations and racing heart rate. - Related Data Allergies/Adverse Reactions: No Known Allergies Allergy (Verified 02/09/20 15:10) Home Medications: metoprolol, wellbutrin Past Medical History - General Information source: Patient - Social History Smoking Status: Never Smoker Chew tobacco use (# tins/day): No Frequency of alcohol use: None Drug Abuse: None Family History: Reviewed & Not Pertinent Patient has homicidal ideation: No Neurological Medical History: Denies: Hx Cerebrovascular Accident Renal/ Medical History: Denies: Hx Peritoneal Dialysis Past Surgical History: Reports: Hx Cholecystectomy, Hx Hysterectomy, Hx Tubal Ligation - Immunizations Hx Diphtheria, Pertussis, Tetanus Vaccination: Yes Review of Systems - Review of Systems Constitutional: denies: Chills, Fever EENT: denies: Double vision, Ear pain, Throat pain Cardiovascular: Chest pain. denies: Palpitations, Heart racing, Orthopnea, Syncope, Dizziness, Lightheaded, Edema Respiratory: denies: Cough, Short of breath Gastrointestinal: denies: Abdominal pain, Diarrhea, Nausea, Vomiting Genitourinary: denies: Flank pain Musculoskeletal: denies: Muscle pain, Muscle stiffness, Neck pain Skin: No symptoms reported Neurological/Psychological: No symptoms reported -: Yes All other systems reviewed and negative Physical Exam - Vital signs Vitals: Temp Pulse Resp BP Pulse Ox 98.0 F 88 20 118/78 98 02/09/20 13:50 02/09/20 13:50 02/09/20 13:50 02/09/20 13:50 02/09/20 13:50 Interpretation: Normal Notes: PHYSICAL EXAMINATION: GENERAL: Well-appearing, well-nourished and in no acute distress. HEAD: Atraumatic, normocephalic. EYES: Pupils equal round and reactive to light, extraocular movements intact, sclera anicteric, conjunctiva are normal. ENT: nares patent, oropharynx clear without exudates. Moist mucous membranes. NECK: Normal range of motion, supple without lymphadenopathy LUNGS: Breath sounds clear to auscultation bilaterally and equal. No wheezes rales or rhonchi. No tenderness to palpation over the chest wall. There is no crepitus or step-off. HEART: Regular rate and rhythm without murmurs ABDOMEN: Noted obesity. Soft, nontender, normoactive bowel sounds. No guarding, no rebound. No masses appreciated. EXTREMITIES: Normal range of motion, no pitting or edema. No cyanosis. NEUROLOGICAL: No focal neurological deficits. Moves all extremities spontaneously and on command. PSYCH: Normal mood, normal affect. SKIN: Warm, Dry, normal turgor, no rashes or lesions noted. Course - Re-evaluation Re-evalutation: 02/09/20 Impression: Chest pain. Patient with a reassuring troponin, EKG, chest x-ray, other labs. She is PERC negative. She also has a heart score of 1. Low suspicion for aortic dissection. She has very reassuring vital signs. Do think that this may be stress related. She takes Wellbutrin but she has not really been seen by her primary care physician about it for about 2 years. I have offered her Vistaril to help. I will have her follow-up with primary care without fail. She is encouraged to return if her symptoms get worse. She denies any SI, HI, hallucinations. - Vital Signs Vital signs: Temp Pulse Resp BP Pulse Ox 98.0 F 85 18 109/78 99 02/09/20 17:47 02/09/20 17:47 02/09/20 17:47 02/09/20 17:47 02/09/20 17:47 - Laboratory Result Diagrams: 02/09/20 15:20 02/09/20 15:20 Laboratory results interpreted by me: 02/09/20 02/09/20 15:20 15:20 MCH 33.8 H Calcium 10.4 H Total Protein 8.4 H - Diagnostic Test Radiology reviewed: Image reviewed, Reports reviewed - EKG Interpretation by Me Additional EKG results interpreted by me: 02/09/20 Rate: 89 Rhythm: Sinus Interpretation: No STEMI, no ST changes, normal axis, no LVH. There is no comparison Discharge - Discharge Clinical Impression: Stress Chest pain Qualifiers: Chest pain type: unspecified Qualified Code(s): R07.9 - Chest pain, unspecified Condition: Stable Disposition: HOME, SELF-CARE Instructions: Chest Pain of Unclear Cause ([facility]) Additional Instructions: Follow-up with primary care without fail. Today you had reassuring lab work and chest x-ray as well as EKG for your chest pain. This could be related to stress. Been written for medicine that can help with your anxious feelings about the pandemic. Please return if you have any worsening symptoms. Prescriptions: Hydroxyzine Pamoate [Vistaril 25 mg Capsule] 1 cap PO Q6 PRN #30 capsule PRN Reason: Forms: Return to Work [facility] [[facility]] - Follow up in 1 week
[2020-02-09 17:48] VITALS: BP 109/78
--- NOTE | 2020-02-11 11:18 | EKG REPORT ---
SEVERITY:- NORMAL ECG - SINUS RHYTHM : Confirmed by: Mihir Miranda MD 11-Feb-2020 11:16:44
== END 2020-02-09 17:48 | disposition home or self-care (01) ==
LOC: ER 13:34
DX: R07.9 Chest pain, unspecified (principal); F43.9 Reaction to severe stress, unspecified
CPT/HCPCS: 36415; 71045; 80053; 83690; 83735; 83880; 84484; 85025; 93005; 93010; 99285